=== PATIENT | male | born 1935 | race American Indian/Alaskan Native ===

== ENCOUNTER 2018-06-04 12:06 | Inpatient (IN) | payer MEDICARE ==
--- NOTE | 2018-06-04 12:25 | Emergency Department Report ---
Blank Doc - Documentation Documentation: Patient is here for lab Patient has been out of diaylsis for 2 weeks. Patient has history renal failure and is currently in a drug rehab. No pain no complaints bought here by a frient. Diaylsis will not accept patient until he has labs. This initial assessment diagnostic orders/clinical plan/treatment (s) is/Are subjectto change based on patient's health status, clinical progession and re- assessment by fellow clinical providers in the ED. Further treatment and work-up at subsequent clinical providers decretion. Patient/guardians urged not to elope from s their condition may be serious if not clinically assessed and managed. Inital order include:CBC, CMP,
[2018-06-04 13:07] LABS: Basophils % (Auto) 0.6 % (0.0-1.8); Eosinophils % (Auto) 0.9 % (0.0-4.3); Hematocrit 27.9 % (35.5-45.6); Hemoglobin 9.2 gm/dl (11.8-15.2); Lymphocytes # (Auto) 0.9 K/mm3 (1.2-5.4); Lymphocytes % (Auto) 19.5 % (13.4-35.0); Mean Corpuscular HGB Conc 33 % (32-34); Mean Corpuscular Volume 99 fl (84-94); Monocytes # (Auto) 0.4 K/mm3 (0.0-0.8); Platelet Count 241 K/mm3 (140-440); Red Blood Count 2.83 M/mm3 (3.65-5.03); Red Cell Distribution Width 16.6 % (13.2-15.2)
[2018-06-04 13:12] LABS: Albumin 3.7 g/dL (3.9-5); Calcium 7.7 mg/dL (8.4-10.2)
--- NOTE | 2018-06-04 14:39 | History and Physical Report ---
History of Present Illness Chief complaint: I need dialysis History of present illness: 82 YO Male with ESRD on HD, Dementia, Polysubstance Abuse, Noncompliance with Dialysis who currently resides at [facility] presents to ED for evaluation. Pt states that he has not had dialysis since moving to [place] over 2 weeks ago. PT reports dizziness, and feeling bloated. Pt transported to [facility] by his daughter for further care and evaluation. Pt seen and evaluated in ED and found to have ESRD. Pt admitted to [facility] unit. Nephrology consulted in ED for dialysis. Pt denies fever, chills, CP, Palpitations, NVD, Trauma, BRBPR, skin rash, or recent ill contacts. Past History Past Medical History: ESRD, other (Polysubstance Abuse, Dementia) Past Surgical History: Other (dialysis access. ) Social history: single, lives with family. denies: smoking, alcohol abuse, prescription drug abuse Family history: hypertension Medications and Allergies Allergies Allergy/AdvReac Type Severity Reaction Status Date / Time No Known Allergies Allergy Unverified 06/04/18 12:07 Review of Systems Constitutional: no weight loss, no weight gain, no fever, no chills Ears, nose, mouth and throat: no ear pain, no ear discharge, no tinnitis, no decreased hearing, no nose pain Cardiovascular: decreased exercise tolerance, no chest pain, no orthopnea, no palpitations, no rapid/irregular heart beat, no edema Respiratory: no cough, no cough with sputum, no excessive sputum, no hemoptysis Gastrointestinal: no nausea, no vomiting, no diarrhea Genitourinary Male: no hematuria, no discharge, no urinary frequency, no urinary hesitancy Rectal: no pain, no incontinence, no bleeding Musculoskeletal: no neck stiffness, no neck pain, no shooting arm pain, no arm numbness/tingling, no low back pain Integumentary: no rash, no pruritis, no redness, no sores, no wounds Neurological: no transient paralysis, no paralysis, no weakness, no parathesias, no numbness, no tingling Psychiatric: no anxiety, no memory loss, no change in sleep habits, no sleep disturbances, no insomnia Endocrine: no cold intolerance, no heat intolerance, no polyphagia, no excessive thirst, no polydipsia Hematologic/Lymphatic: no easy bruising, no easy bleeding, no lymphadenopathy, no lymphedema Allergic/Immunologic: no urticaria, no allergic rhinitis, no wheezing Exam - Constitutional Vitals: Temp Pulse Resp BP Pulse Ox 98.3 F 74 18 155/60 96 06/04/18 12:22 06/04/18 12:22 06/04/18 13:51 06/04/18 12:22 06/04/18 12:22 General appearance: Present: mild distress - EENT Eyes: Present: PERRL ENT: hearing intact, clear oral mucosa - Neck Neck: Present: supple, normal ROM - Respiratory Respiratory effort: normal Respiratory: bilateral: CTA - Cardiovascular Heart Sounds: Present: S1 & S2. Absent: rub, click - Extremities Extremities: pulses symmetrical, No edema Peripheral Pulses: within normal limits - Abdominal General gastrointestinal: Present: soft, non-tender, non-distended, normal bowel sounds Male genitourinary: Present: normal - Integumentary Integumentary: Present: clear, warm, dry - Musculoskeletal Musculoskeletal: gait normal, strength equal bilaterally - Psychiatric Psychiatric: appropriate mood/affect, intact judgment & insight - Neurologic Neurologic: CNII-XII intact, moves all extremities Results - Labs CBC & Chem 7: 06/04/18 12:28 06/04/18 12:28 Labs: Abnormal lab results 06/04/18 06/04/18 Range/Units 12:28 12:28 RBC 2.83 L (3.65-5.03) M/mm3 Hgb 9.2 L (11.8-15.2) gm/dl Hct 27.9 L (35.5-45.6) % MCV 99 H (84-94) fl MCH 33 H (28-32) pg RDW 16.6 H (13.2-15.2) % Howard % (Auto) 9.0 H (0.0-7.3) % Lymph # 0.9 L (1.2-5.4) K/mm3 Sodium 135 L (137-145) mmol/L Potassium 5.5 H (3.6-5.0) mmol/L Carbon Dioxide 10 L (22-30) mmol/L BUN 128 H (9-20) mg/dL Creatinine 10.4 H (0.8-1.5) mg/dL Glucose 104 H (75-100) mg/dL Calcium 7.7 L (8.4-10.2) mg/dL Albumin 3.7 L (3.9-5) g/dL Assessment and Plan - Patient Problems (1) ESRD (end stage renal disease) Current Visit: Yes Status: Acute Plan to address problem: Nephrology consulted in ED, urgent dialysis as per renal team, monitor uop q shift, avoid nephrotoxic agents (2) Dementia Current Visit: Yes Status: Acute Qualifiers: Dementia type: vascular dementia Dementia behavioral disturbance: without behavioral disturbance Qualified Code(s): F01.50 - Vascular dementia without behavioral disturbance Plan to address problem: supportive care, neuro checks, aspiration precautions. (3) Polysubstance abuse Current Visit: Yes Status: Acute Plan to address problem: D/C to [facility] when medically optimized. (4) DVT prophylaxis Current Visit: Yes Status: Acute Plan to address problem: SCD to BLE while in bed.
--- NOTE | 2018-06-04 14:41 | Emergency Department Report ---
ED General Adult HPI - General Chief complaint: Medical Clearance Stated complaint: MEDICAL CLEARANCE Time Seen by Provider: 06/04/18 12:18 Source: patient Mode of arrival: Ambulatory Limitations: No Limitations - History of Present Illness Initial comments: Patient is a thin 82-year-old F Vincent is a male who is presenting with need for dialysis. Patient has been bounced around from living with his daughter to now living here in [facility] is currently at the [facility]. The patient has not had dialysis in 16 days after moving here. Patient states that he does have some mild dizziness but otherwise no other complaints at this time. The patient denies any nausea vomiting headaches fevers chills or sob . Severity scale (0 -10): 0 - Related Data Allergies Allergy/AdvReac Type Severity Reaction Status Date / Time No Known Allergies Allergy Unverified 06/04/18 12:07 ED Review of Systems ROS: Stated complaint: MEDICAL CLEARANCE Other details as noted in HPI Comment: All other systems reviewed and negative ED Past Medical Hx - Past Medical History Hx Renal Disease: Yes (HD) Hx Psychiatric Treatment: Yes (drug abuse) - Social History Smoking Status: Unknown if ever smoked Substance Use Type: None ED Physical Exam - General Limitations: No Limitations General appearance: alert, in no apparent distress - Head Head exam: Present: atraumatic, normocephalic - Eye Eye exam: Present: normal appearance - ENT ENT exam: Present: mucous membranes moist - Neck Neck exam: Present: normal inspection - Respiratory Respiratory exam: Present: normal lung sounds bilaterally. Absent: respiratory distress, wheezes, rales, rhonchi - Cardiovascular Cardiovascular Exam: Present: regular rate, normal rhythm. Absent: systolic murmur, diastolic murmur, rubs, gallop - GI/Abdominal GI/Abdominal exam: Present: soft, normal bowel sounds. Absent: distended, tenderness, guarding, rebound - Rectal Rectal exam: Present: deferred - Extremities Exam Extremities exam: Present: normal inspection - Back Exam Back exam: Present: normal inspection - Neurological Exam Neurological exam: Present: alert, oriented X3 - Psychiatric Psychiatric exam: Present: normal affect, normal mood - Skin Skin exam: Present: warm, dry, intact, normal color. Absent: rash ED Course Vital Signs 06/04/18 06/04/18 12:22 13:51 Temperature 98.3 F Pulse Rate 74 Respiratory 18 18 Rate Blood Pressure 155/60 O2 Sat by Pulse 96 Oximetry ED Medical Decision Making - Lab Data Result diagrams: 06/04/18 12:28 06/04/18 12:28 Lab Results 06/04/18 06/04/18 Range/Units 12:28 12:28 WBC 4.5 (4.5-11.0) K/mm3 RBC 2.83 L (3.65-5.03) M/mm3 Hgb 9.2 L (11.8-15.2) gm/dl Hct 27.9 L (35.5-45.6) % MCV 99 H (84-94) fl MCH 33 H (28-32) pg MCHC 33 (32-34) % RDW 16.6 H (13.2-15.2) % Plt Count 241 (140-440) K/mm3 Lymph % (Auto) 19.5 (13.4-35.0) % Dewey % (Auto) 9.0 H (0.0-7.3) % Eos % (Auto) 0.9 (0.0-4.3) % Baso % (Auto) 0.6 (0.0-1.8) % Lymph # 0.9 L (1.2-5.4) K/mm3 Dewey # 0.4 (0.0-0.8) K/mm3 Eos # 0.0 (0.0-0.4) K/mm3 Baso # 0.0 (0.0-0.1) K/mm3 Seg Neutrophils % 70.0 (40.0-70.0) % Seg Neutrophils # 3.2 (1.8-7.7) K/mm3 Sodium 135 L (137-145) mmol/L Potassium 5.5 H (3.6-5.0) mmol/L Chloride 106.3 (98-107) mmol/L Carbon Dioxide 10 L (22-30) mmol/L Anion Gap 24 mmol/L BUN 128 H (9-20) mg/dL Creatinine 10.4 H (0.8-1.5) mg/dL Estimated GFR 5 ml/min BUN/Creatinine Ratio 12 % Glucose 104 H (75-100) mg/dL Calcium 7.7 L (8.4-10.2) mg/dL Total Bilirubin 0.90 (0.1-1.2) mg/dL AST 21 (5-40) units/L ALT 18 (7-56) units/L Alkaline Phosphatase 90 (35-129) units/L Total Protein 7.0 (6.3-8.2) g/dL Albumin 3.7 L (3.9-5) g/dL Albumin/Globulin Ratio 1.1 % - EKG Data -: EKG Interpreted by Me - EKG Data 06/04/18 14:39 EKG shows sinus rhythm of 68 with normal axis normal intervals no ST segment elevation or depressions. - Medical Decision Making Patient does have a slightly elevated potassium was given Kayexalate. Patient to be admitted to the hospitalist service for dialysis. Critical care attestation.: If time is entered above; I have spent that time in minutes in the direct care of this critically ill patient, excluding procedure time. ED Disposition Clinical Impression: Missed dialysis, Hyperkalemia Disposition: OP ADMIT IP TO THIS HOSP Is pt being admited?: Yes Does the pt Need Aspirin: No Condition: Stable Referrals: [facility] [Other] - 3-5 Days Time of Disposition: 14:41
[2018-06-04] MEDS ORDERED: ZOFRAN IV PRN (14:51)
[2018-06-04] MEDS ORDERED: TYLENOL PO PRN (14:51)
[2018-06-04] MEDS ORDERED: PROVENTIL IH PRN (14:51)
[2018-06-04] MEDS ORDERED: SODIUM CHLORIDE FLUSH SYRINGE 10 ML IV PRN (14:51)
[2018-06-04] MEDS ORDERED: NACL 0.9% 100 ML IV PRN (17:22)
[2018-06-04] MEDS ORDERED: KIONEX PO ONE ×2 (20:04→23:00)
--- NOTE | 2018-06-04 20:05 | Consultation ---
History of Present Illness - Reason for Consult Consult date: 06/04/18 end stage renal disease, hypernatremia - History of Present Illness The patient is a 82 YO male with history significant for HTN, Anemia, Dementia and ESRD on HD (MWF) who presented to the ED with c/o missed hemodialysis more than 2 weeks. Patient was a very poor historian and there was no family member at the bedside. He recently moved from [facility] and currently living here in [facility] at the [facility]. Pt reports dizziness at times. Pt denies fever, chills, CP, N, V, D, skin rash, abd pain, leg swelling or SMITH. Patient was transported to [facility] by his daughter. Pt seen and evaluated in ED a nd found to have hyperkalemia and metabolic acidosis. Pt admitted to [facility] unit. Nephrology consulted for ESRD care. Past History Past Medical History: anemia, ESRD, hypertension, other (Polysubstance Abuse, Dementia) Past Surgical History: Other (dialysis access. ) Social history: single, lives with family. denies: smoking, alcohol abuse, prescription drug abuse Family history: hypertension Medications and Allergies Allergies Allergy/AdvReac Type Severity Reaction Status Date / Time No Known Allergies Allergy Unverified 06/04/18 12:07 Active Meds: Active Medications Acetaminophen (Tylenol) 650 mg PO Q4H PRN PRN Reason: Pain MILD(1-3)/Fever >100.5/SMITH Albuterol (Proventil) 2.5 mg IH Q4HRT PRN PRN Reason: Shortness Of Breath Sodium Chloride (Nacl 0.9%) 100 mls @ 999 mls/hr IV LEEANN PRN PRN Reason: Hypotension Ondansetron HCl (Zofran) 4 mg IV Q8H PRN PRN Reason: Nausea And Vomiting Sodium Chloride (Sodium Chloride Flush Syringe 10 Ml) 10 ml IV BID HERMAN Sodium Chloride (Sodium Chloride Flush Syringe 10 Ml) 10 ml IV PRN PRN PRN Reason: LINE FLUSH Review of Systems ROS unobtainable: due to mental status Exam - Vital Signs Vital signs: Vital Signs Temp Pulse Resp BP Pulse Ox 98.3 F 74 18 155/60 96 06/04/18 12:22 06/04/18 12:22 06/04/18 12:22 06/04/18 12:22 06/04/18 12:22 - General Appearance General appearance: well-developed, appears stated age, other (not in distress) EENT: ATNC, mucous membranes moist, vision intact Neck: Present: neck supple, trachea midline Respiratory: Rales Heart: regular Gastrointestinal: Present: normoactive bowel sounds. Absent: tenderness, distended Integumentary: no rash, warm and dry Neurologic: no focal deficit, no asterixis, disoriented Musculoskeletal: Present: other (no edema, left arm AVF) Results - Lab Results 06/04/18 12:28 06/04/18 12:28 Most recent lab results Calcium 7.7 mg/dL (8.4-10.2) L 06/04/18 12:28 Assessment and Plan 1. ESRD: Patient was admitted with missed hemodialysis for more than 2 weeks. Plan to do hemodialysis today, orders placed. 2. Hyperkalemia and Metabolic acidosis: Hemodialysis today. Unfortunately the HD access got infiltrated and unable to do HD today. Kayexalate and IV Lasix ordered. 3. Anemia: Epogen as needed. 4. HTN: IV Lasix ordered. May need additional meds depending on the BP.
[2018-06-04] MEDS ORDERED: NACL 0.9 (PRIMING MACHINE ONLY DIALYSIS) MC ONE (20:29)
[2018-06-04] MEDS ORDERED: LASIX 80 MG in NACL 0.9% 50 ML IV ONE (20:51)
[2018-06-04] MEDS ORDERED: LASIX IV ONE (22:00)
[2018-06-04] MEDS: SODIUM CHLORIDE FLUSH SYRINGE 10 ML IV SCH (22:24)
[2018-06-04 22:25] LABS: Hepatitis B Surface Antigen Non-Reactive (Negative); Hepatitis C Virus Antibody Non-Reactive (NonReactive)
[2018-06-05 05:02] LABS: Calcium 7.5 mg/dL (8.4-10.2)
[2018-06-05] MEDS ORDERED: KIONEX PO NR (10:00)
[2018-06-05] MEDS: SODIUM CHLORIDE FLUSH SYRINGE 10 ML IV SCH ×2 (10:05→21:34)
[2018-06-05] MEDS ORDERED: D50W (25GM) Syringe IV ONE (10:30)
--- NOTE | 2018-06-05 11:29 | Progress Note ---
Assessment and Plan 1. ESRD: Patient was admitted with missed hemodialysis for more than 2 weeks. Unable to do hemodialysis as the access got infitrated. Vascular consulted. 2. Hyperkalemia and Metabolic acidosis: Unfortunately the HD access got infiltrated and unable to do HD. Kayexalate and IV Lasix ordered. 3. Malfunctioning AVF: Scheduled for Angioplasty tomorrow. 4. Anemia: Epogen as needed. 5. HTN: IV Lasix ordered. Monitor BP. Subjective Date of service: 06/05/18 Interval history: Patient was seen and examined at the bedside. Objective - Vital Signs Vital signs: Vital Signs - 12hr 06/05/18 06/05/18 06/05/18 02:57 04:41 07:55 Temperature 97.4 F L 97.9 F Pulse Rate 68 66 68 Respiratory 16 18 Rate Blood Pressure 151/60 158/70 O2 Sat by Pulse 99 98 Oximetry - General Appearance General appearance: well-developed, appears stated age, other (not in distress) EENT: ATNC, PERRL, vision intact Neck: supple Respiratory: Present: Clear to Ascultation Cardiology: regular, S1S2, no murmurs Integumentary: no rash, warm and dry Neurologic: no focal deficit, no asterixis, confused, disoriented Musculoskeletal: other (left arm AVF with swelling noted) - Lab 06/04/18 12:28 06/05/18 04:01 Most recent lab results Calcium 7.5 mg/dL (8.4-10.2) L 06/05/18 04:01 Phosphorus 6.10 mg/dL (2.5-4.5) H 06/05/18 04:01 Medications & Allergies - Medications Allergies/Adverse Reactions: Allergies No Known Allergies Allergy (Unverified 06/04/18 12:07) Active Medications: Generic Name Dose Route Start Last Admin Trade Name Freq PRN Reason Stop Dose Admin Acetaminophen 650 mg 06/04/18 14:51 Tylenol PO Q4H PRN Pain MILD(1-3)/Fever >100.5/SMITH Albuterol 2.5 mg 06/04/18 14:51 Proventil IH Q4HRT PRN Shortness Of Breath Sodium Chloride 100 mls @ 999 mls/hr 06/04/18 17:22 Nacl 0.9% IV LEEANN PRN Hypotension Ondansetron HCl 4 mg 06/04/18 14:51 Zofran IV Q8H PRN Nausea And Vomiting Sodium Chloride 10 ml 06/04/18 22:00 06/05/18 10:05 Sodium Chloride Flush Syringe 10 Ml IV 10 ml BID HERMAN Administration Sodium Chloride 10 ml 06/04/18 14:51 Sodium Chloride Flush Syringe 10 Ml IV PRN PRN LINE FLUSH Sodium Polystyrene Sulfonate 30 gm 06/05/18 10:00 06/05/18 10:21 Kionex PO 06/05/18 16:00 30 gm ONCE NR Administration
[2018-06-05] MEDS ORDERED: LASIX IV ONE ×2 (11:59→16:00)
--- NOTE | 2018-06-05 14:07 | Consultation ---
History of Present Illness - Reason for Consult Consult date: 06/05/18 malfunctioning left arm AV access - History of Present Illness He is 82 year Black male admitted through the Emergency Department with hyperkalemia and metabolic acidosis. He is poor historian and has history of dementia. Information obtained through records and from daughter indicates he has history of ESRD, HTN, Dementia and polysubstance abuse. He has become noncompliant with his healthcare regimen. Routinely misses dialysis sessions and has been moving around from different homes. He is currently residing in [facility]. His last hemodialysis session was 2 weeks ago. After admission, an attempt was made to complete hemodialysis through his left arm av access. Unable to finish full dialysis session because of malfunctioning access. Vascular surgery consult requested to evaluate. Past History Past Medical History: anemia, ESRD, hypertension, other (Polysubstance Abuse, Dementia) Past Surgical History: Other (dialysis access. ) Social history: single, other (Lives in senior care). denies: smoking, alcohol abuse, prescription drug abuse Family history: hypertension Medications and Allergies Allergies Allergy/AdvReac Type Severity Reaction Status Date / Time No Known Allergies Allergy Unverified 06/04/18 12:07 Active Meds: Active Medications Acetaminophen (Tylenol) 650 mg PO Q4H PRN PRN Reason: Pain MILD(1-3)/Fever >100.5/SMITH Albuterol (Proventil) 2.5 mg IH Q4HRT PRN PRN Reason: Shortness Of Breath Sodium Chloride (Nacl 0.9%) 100 mls @ 999 mls/hr IV LEEANN PRN PRN Reason: Hypotension Ondansetron HCl (Zofran) 4 mg IV Q8H PRN PRN Reason: Nausea And Vomiting Sodium Chloride (Sodium Chloride Flush Syringe 10 Ml) 10 ml IV BID HERMAN Last Admin: 06/05/18 10:05 Dose: 10 ml Documented by: Sodium Chloride (Sodium Chloride Flush Syringe 10 Ml) 10 ml IV PRN PRN PRN Reason: LINE FLUSH Sodium Polystyrene Sulfonate (Kionex) 30 gm PO ONCE NR Stop: 06/05/18 16:00 Last Admin: 06/05/18 10:21 Dose: 30 gm Documented by: Review of Systems ROS unobtainable: due to mental status (He denies any complaints but poor mental status) Exam - Constitutional Vitals: Temp Pulse Resp BP Pulse Ox 97.9 F 80 18 158/70 95 06/05/18 07:55 06/05/18 10:00 06/05/18 10:00 06/05/18 07:55 06/05/18 10:00 General appearance: Present: no acute distress, other (Thin) - EENT ENT: hearing intact - Neck Neck: Present: supple, normal ROM - Respiratory Respiratory effort: normal, other (nonlabored at rest) - Cardiovascular Rhythm: regular - Extremities Extremities: no ischemia, abnormal (Right DP/PT nonpalpable left DP palpable left PT nonpalpable. Extremities warm. Left arm AV access present good thrill but increased pulse) - Integumentary Integumentary: Present: warm, dry, normal turgor - Musculoskeletal Musculoskeletal: generalized weakness - Psychiatric Psychiatric: no intact judgment & insight, no memory intact, cooperative - Neurologic Neurologic: moves all extremities, other (Awake alert speech clear) Results - Labs CBC & Chem 7: 06/04/18 12:28 06/05/18 04:01 Labs: Abnormal lab results 06/05/18 Range/Units 04:01 Sodium 135 L (137-145) mmol/L Potassium 5.3 H (3.6-5.0) mmol/L Carbon Dioxide 13 L (22-30) mmol/L BUN 125 H (9-20) mg/dL Creatinine 10.2 H (0.8-1.5) mg/dL Calcium 7.5 L (8.4-10.2) mg/dL Phosphorus 6.10 H (2.5-4.5) mg/dL Assessment and Plan Mechanical complications AV Acess He has left upper arm AV access that was able to be used for hemodialysis for only partial session. The access has good thrill with increased pulse and will need fistuolgram and angioplasty to restore functionality to the access. If unable to complete procedure and restore full functionality to the access will need placement of hemodialysis catheter. Discussed all with patient and daughter(by phone), including risks benefits and alternatives. Consent obtained from daughter by phone.
--- NOTE | 2018-06-05 14:58 | Progress Note ---
Assessment and Plan Assessment and plan: ESRD (end stage renal disease) - Neurology consulted and give the patient Kayexalate and IV Lasix - Couldn't do dialysis because of AVF malfunction AVF malfunction - Vascular surgery consulted and will plan to do angioplasty and revascularization - If it doesn't work patient may need permcath Dementia - Supportive care Metabolic acidosis, hyperkalemia - Kayexalate and IV Lasix and nephrology - We'll monitor Polysubstance abuse - Per H/p DVT prophylaxis - Heparin History Interval history: Patient was seen and evaluated this morning, patient was alert but demented. Didn't give much history. Hospitalist Physical - Physical exam Narrative exam: Not in cardiopulmonary distress. The patient appeared well nourished and normally developed. Vital signs as documented. Head exam is unremarkable. No scleral icterus . Neck is without jugular venous distension. Lungs are clear to auscultation. Cardiac exam reveals regular rate and Rhythm. Abdominal exam reveals normal bowel sounds. Extremities are nonedematous and both femoral and pedal pulses are normal. [employer]: demented. He can say his name and he is in the hospital. - Constitutional Vitals: Temp Pulse Resp BP Pulse Ox 97.8 F 76 18 161/76 100 06/05/18 13:23 06/05/18 13:23 06/05/18 13:23 06/05/18 13:23 06/05/18 13:23 General appearance: Present: no acute distress, other (Thin) Results - Labs CBC & Chem 7: 06/04/18 12:28 06/05/18 04:01 Labs: Laboratory Last Values WBC 4.5 K/mm3 (4.5-11.0) 06/04/18 12: RBC 2.83 M/mm3 (3.65-5.03) L 06/04/18 12:28 Hgb 9.2 gm/dl (11.8-15.2) L 06/04/18 12: Hct 27.9 % (35.5-45.6) L 06/04/18 12:28 MCV 99 fl (84-94) H 06/04/18 12:28 MCH 33 pg (28-32) H 06/04/18 12: MCHC 33 % (32-34) 06/04/18 12: RDW 16.6 % (13.2-15.2) H 06/04/18 12:28 Plt Count 241 K/mm3 (140-440) 06/04/18 12:28 Lymph % (Auto) 19.5 % (13.4-35.0) 06/04/18 12:28 Traverse % (Auto) 9.0 % (0.0-7.3) H 06/04/18 12:28 Eos % (Auto) 0.9 % (0.0-4.3) 06/04/18 12:28 Baso % (Auto) 0.6 % (0.0-1.8) 06/04/18 12: Lymph # 0.9 K/mm3 (1.2-5.4) L 06/04/18 12:28 Traverse # 0.4 K/mm3 (0.0-0.8) 06/04/18 12: Eos # 0.0 K/mm3 (0.0-0.4) 06/04/18 12: Baso # 0.0 K/mm3 (0.0-0.1) 06/04/18 12:28 Seg Neutrophils % 70.0 % (40.0-70.0) 06/04/18 12: Seg Neutrophils # 3.2 K/mm3 (1.8-7.7) 06/04/18 12:28 Sodium 135 mmol/L (137-145) L 06/05/18 04:01 Potassium 5.3 mmol/L (3.6-5.0) H 06/05/18 04:01 Chloride 105.2 mmol/L (98-107) 06/05/18 04:01 Carbon Dioxide 13 mmol/L (22-30) L 06/05/18 04:01 Anion Gap 22 mmol/L 06/05/18 04:01 BUN 125 mg/dL (9-20) H 06/05/18 04:01 Creatinine 10.2 mg/dL (0.8-1.5) H 06/05/18 04:01 Estimated GFR 6 ml/min 06/05/18 04:01 BUN/Creatinine Ratio 12 % 06/05/18 04:01 Glucose 90 mg/dL (75-100) 06/05/18 04:01 Calcium 7.5 mg/dL (8.4-10.2) L 06/05/18 04:01 Phosphorus 6.10 mg/dL (2.5-4.5) H 06/05/18 04:01 Total Bilirubin 0.90 mg/dL (0.1-1.2) 06/04/18 12:28 AST 21 units/L (5-40) 06/04/18 12:28 ALT 18 units/L (7-56) 06/04/18 12:28 Alkaline Phosphatase 90 units/L (35-129) 06/04/18 12:28 Total Protein 7.0 g/dL (6.3-8.2) 06/04/18 12:28 Albumin 3.7 g/dL (3.9-5) L 06/04/18 12:28 Albumin/Globulin Ratio 1.1 % 06/04/18 12:28 Hepatitis A IgM Ab Non-reactive (NonReactive) 06/04/18 21:09 Hep Bs Antigen Non-reactive (Negative) 06/04/18 21:09 Hep B Core IgM Ab Non-reactive (NonReactive) 06/04/18 21:09 Hepatitis C Antibody Non-reactive (NonReactive) 06/04/18 21:09
[2018-06-05] MEDS: HEPARIN SUB-Q SCH (22:18)
--- NOTE | 2018-06-05 22:20 | XRay Report ---
PROCEDURE: XR CHEST 1V AP TECHNIQUE: Single frontal view of the chest HISTORY: TB (requirement for hemodialysis) COMPARISONS: No priors FINDINGS: Cardiomediastinal silhouette within normal limits. No evidence of airspace consolidation or pleural effusions Pulmonary vasculature are within normal limits. IMPRESSION: No radiographic evidence of acute disease.. This document is electronically signed by Sg Pearson MD., June 05 2018 10:18:14 PM ET
[2018-06-06] MEDS: HEPARIN SUB-Q SCH ×3 (05:07→21:54)
[2018-06-06 06:22] LABS: Calcium 7.2 mg/dL (8.4-10.2)
[2018-06-06] MEDS: PHOSLO PO SCH ×3 (08:10→16:01)
[2018-06-06] MEDS ORDERED: HEPARIN/NS 5000 UNIT/500ML(CATH LAB) 500 ML IR ONE ×2 (08:39→09:07)
[2018-06-06] MEDS ORDERED: NACL 0.9% 250ML 250 ML ONE (08:39)
[2018-06-06] MEDS ORDERED: HEPARIN 10,000 UNITS/10 ML ONE (08:39)
[2018-06-06] MEDS ORDERED: ANCEF/STERILE WATER 2 GM/20 ML 2 GM/20 ML SYRINGE IV ONE (08:39)
[2018-06-06] MEDS ORDERED: XYLOCAINE 2% INFILTRATI ONE (09:07)
[2018-06-06] MEDS: VERSED ONE ×2 (09:18→09:33)
[2018-06-06] MEDS: SUBLIMAZE ONE ×2 (09:18→09:33)
--- NOTE | 2018-06-06 09:46 | Progress Note ---
Assessment and Plan 1. ESRD: Patient was admitted with missed hemodialysis for more than 2 weeks. Continue HD as planned. Next HD tomorrow. 2. Hyperkalemia and Metabolic acidosis: POtassium level is better. Hemodialysis today. 3. Malfunctioning AVF: S/p Angioplasty today. 4. Anemia: Epogen as needed. 5. HTN: UF with HD today. Monitor BP. Subjective Date of service: 06/06/18 Interval history: Patient was seen and examined while on HD. Objective - Vital Signs Vital signs: Vital Signs - 12hr 06/05/18 06/06/18 22:00 02:52 Temperature 98.5 F Pulse Rate 66 Pulse Rate [ 78 From Monitor] Respiratory 18 Rate Blood Pressure 175/64 O2 Sat by Pulse 98 97 Oximetry - General Appearance General appearance: well-developed, appears stated age, other (not in distress) EENT: ATNC Neck: supple Respiratory: Present: Clear to Ascultation Cardiology: regular, S1S2, no murmurs Gastrointestinal: normoactive bowel sounds, no tenderness, no distended Integumentary: no rash Neurologic: no focal deficit, no asterixis, confused, disoriented Musculoskeletal: other (no edema, left arm AVF) - Lab 06/04/18 12:28 06/06/18 04:29 Most recent lab results Calcium 7.2 mg/dL (8.4-10.2) L 06/06/18 04:29 Phosphorus 6.10 mg/dL (2.5-4.5) H 06/05/18 04:01 Medications & Allergies - Medications Allergies/Adverse Reactions: Allergies No Known Allergies Allergy (Unverified 06/04/18 12:07) Active Medications: Generic Name Dose Route Start Last Admin Trade Name Freq PRN Reason Stop Dose Admin Acetaminophen 650 mg 06/04/18 14:51 Tylenol PO Q4H PRN Pain MILD(1-3)/Fever >100.5/SMITH Albuterol 2.5 mg 06/04/18 14:51 Proventil IH Q4HRT PRN Shortness Of Breath Calcium Acetate 667 mg 06/06/18 08:00 Phoslo PO TIDWM HERMAN Heparin Sodium (Porcine) 5,000 unit 06/05/18 22:00 06/06/18 05:07 Heparin SUB-Q Not Given Q8HR HERMAN Sodium Chloride 100 mls @ 999 mls/hr 06/04/18 17:22 Nacl 0.9% IV LEEANN PRN Hypotension Ondansetron HCl 4 mg 06/04/18 14:51 Zofran IV Q8H PRN Nausea And Vomiting Sodium Chloride 10 ml 06/04/18 22:00 06/05/18 21:34 Sodium Chloride Flush Syringe 10 Ml IV 10 ml BID HERMAN Administration Sodium Chloride 10 ml 06/04/18 14:51 Sodium Chloride Flush Syringe 10 Ml IV PRN PRN LINE FLUSH
--- NOTE | 2018-06-06 10:06 | Operative Report ---
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 DEVICES: 7 mm x 60 mm angioplasty balloon 6 mm x 40 mm angioplasty balloon PROCEDURE: The risks, benefits, and alternatives of the procedure were discussed and written informed consent was obtained. The patient was transported in stable condition to the angiography suite. The patient's left arm AV cephalic fistula was assessed by ultrasound and was patent. The patient was prepped and draped in a sterile fashion. The peripheral portion of the cephalic vein was small in comparison to the more central portion of the cephalic vein. Under ultrasound guidance, the left arm AV cephalic vein fistula was accessed with a 21-gauge micropuncture needle. The area was anesthetized prior to access. 0.018 inch wire was advanced through the micropuncture needle into the fistula and then the needle was exchanged for a 5 Hungarian transitional dilator. The inner dilator and wire were removed and a 0.035 inch wire was advanced through the anastomosis and into the brachial artery. The transitional dilator was exchanged for a 6 Hungarian short sheath. Fistulogram was performed of the venous outflow and central veins. Brachial artery was selected in a retrograde fashion. Digital subtraction angiography was performed. The anastomosis had a 50% narrowing, the peripheral cephalic vein had a multifocal 60% narrowing, the midportion of the cephalic vein was aneurysmal. The central portion of the cephalic vein was patent and had a stent near the cephalic arch. The central veins were patent. Angioplasty was performed at the peripheral cephalic vein with a 7 mm x 60 mm angioplasty 1. Angioplasty was performed of the anastomosis with a 6 mm x 40 mm angioplasty balloon. Digital subtraction angiography was performed from the brachial artery demon strate an patency of the brachial artery proximal and distal to the anastomosis with 10-20% residual narrowing of the peripheral dialysis access and the anastomosis. The thrill was much stronger. The wire was removed and the site was closed with a 3-0 Vicryl suture. The sheath was then removed. Hemostasis was achieved with slight manual compression. The patient was transported from the angiography suite to the floor in stable condition. IMPRESSION: Successful fistulogram and venoplasty as descibed above with a 6 mm and 7 mm angioplasty balloon.
[2018-06-06] MEDS ORDERED: NACL 0.9% 100 ML IV PRN (10:10)
[2018-06-06] MEDS: SODIUM CHLORIDE FLUSH SYRINGE 10 ML IV SCH ×2 (10:10→22:30)
[2018-06-06] MEDS ORDERED: PROCRIT IV PRN (10:12)
--- NOTE | 2018-06-06 13:37 | Progress Note ---
Assessment and Plan Assessment and plan: ESRD (end stage renal disease) - Neurology consulted and give the patient Kayexalate and IV Lasix - Couldn't do dialysis because of AVF malfunction AVF malfunction - Vascular surgery consulted and will plan to do angioplasty and revascularization was done today - Patient can be discharged tomorrow if she get dialysis Dementia - Supportive care Metabolic acidosis, hyperkalemia - Kayexalate and IV Lasix and nephrology - We'll monitor Polysubstance abuse - Per H/p DVT prophylaxis - Heparin Discharge; [facility] History Interval history: Patient was seen and evaluated this morning, patient was alert but demented. Didn't give much history. Hospitalist Physical - Physical exam Narrative exam: Not in cardiopulmonary distress. The patient appeared well nourished and normally developed. Vital signs as documented. Head exam is unremarkable. No scleral icterus . Neck is without jugular venous distension. Lungs are clear to auscultation. Cardiac exam reveals regular rate and Rhythm. Abdominal exam reveals normal bowel sounds. Extremities are nonedematous and both femoral and pedal pulses are normal. 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 He can say his name and he is in the hospital. - Constitutional Vitals: Temp Pulse Resp BP Pulse Ox 98.5 F 50 L 18 172/65 97 06/06/18 10:45 06/06/18 11:30 06/06/18 10:45 06/06/18 11:30 06/06/18 02:52 General appearance: Present: no acute distress, other (Thin) Results - Labs CBC & Chem 7: 06/04/18 12:28 06/06/18 04:29 Labs: Laboratory Last Values WBC 4.5 K/mm3 (4.5-11.0) 06/04/18 12:28 RBC 2.83 M/mm3 (3.65-5.03) L 06/04/18 12:28 Hgb 9.2 gm/dl (11.8-15.2) L 06/04/18 12:28 Hct 27.9 % (35.5-45.6) L 06/04/18 12:28 MCV 99 fl (84-94) H 06/04/18 12:28 MCH 33 pg (28-32) H 06/04/18 12:28 MCHC 33 % (32-34) 06/04/18 12:28 RDW 16.6 % (13.2-15.2) H 06/04/18 12:28 Plt Count 241 K/mm3 (140-440) 06/04/18 12:28 Lymph % (Auto) 19.5 % (13.4-35.0) 06/04/18 12:28 [place] % (Auto) 9.0 % (0.0-7.3) H 06/04/18 12:28 Eos % (Auto) 0.9 % (0.0-4.3) 06/04/18 12:28 Baso % (Auto) 0.6 % (0.0-1.8) 06/04/18 12:28 Lymph # 0.9 K/mm3 (1.2-5.4) L 06/04/18 12:28 [place] # 0.4 K/mm3 (0.0-0.8) 06/04/18 12:28 Eos # 0.0 K/mm3 (0.0-0.4) 06/04/18 12:28 Baso # 0.0 K/mm3 (0.0-0.1) 06/04/18 12:28 Seg Neutrophils % 70.0 % (40.0-70.0) 06/04/18 12:28 Seg Neutrophils # 3.2 K/mm3 (1.8-7.7) 06/04/18 12:28 Sodium 135 mmol/L (137-145) L 06/06/18 04:29 Potassium 4.8 mmol/L (3.6-5.0) 06/06/18 04:29 Chloride 102.0 mmol/L (98-107) 06/06/18 04:29 Carbon Dioxide 14 mmol/L (22-30) L 06/06/18 04:29 Anion Gap 24 mmol/L 06/06/18 04:29 BUN 121 mg/dL (9-20) H 06/06/18 04:29 Creatinine 9.7 mg/dL (0.8-1.5) H 06/06/18 04:29 Estimated GFR 6 ml/min 06/06/18 04:29 BUN/Creatinine Ratio 12 % 06/06/18 04:29 Glucose 87 mg/dL (75-100) 06/06/18 04:29 Calcium 7.2 mg/dL (8.4-10.2) L 06/06/18 04:29 Phosphorus 6.10 mg/dL (2.5-4.5) H 06/05/18 04:01 Total Bilirubin 0.90 mg/dL (0.1-1.2) 06/04/18 12:28 AST 21 units/L (5-40) 06/04/18 12:28 ALT 18 units/L (7-56) 06/04/18 12:28 Alkaline Phosphatase 90 units/L (35-129) 06/04/18 12:28 Total Protein 7.0 g/dL (6.3-8.2) 06/04/18 12:28 Albumin 3.7 g/dL (3.9-5) L 06/04/18 12:28 Albumin/Globulin Ratio 1.1 % 06/04/18 12:28 Hepatitis A IgM Ab Non-reactive (NonReactive) 06/04/18 21:09 Hep Bs Antigen Non-reactive (Negative) 06/04/18 21:09 Hep B Core IgM Ab Non-reactive (NonReactive) 06/04/18 21:09 Hepatitis C Antibody Non-reactive (NonReactive) 06/04/18 21:09
[2018-06-06] MEDS ORDERED: NACL 0.9 (PRIMING MACHINE ONLY DIALYSIS) MC ONE (14:09)
[2018-06-06] MEDS ORDERED: APRESOLINE IV PRN (15:18)
[2018-06-06] MEDS: NORVASC PO SCH (15:51)
[2018-06-06] MEDS: APRESOLINE PO SCH (21:00)
[2018-06-07 05:21] LABS: Basophils % (Auto) 0.6 % (0.0-1.8); Eosinophils # (Auto) 0.1 K/mm3 (0.0-0.4); Eosinophils % (Auto) 1.1 % (0.0-4.3); Hematocrit 24.2 % (35.5-45.6); Hemoglobin 8.3 gm/dl (11.8-15.2); Lymphocytes # (Auto) 1.1 K/mm3 (1.2-5.4); Lymphocytes % (Auto) 22.8 % (13.4-35.0); Mean Corpuscular HGB Conc 34 % (32-34); Mean Corpuscular Volume 93 fl (84-94); Monocytes # (Auto) 0.5 K/mm3 (0.0-0.8); Platelet Count 193 K/mm3 (140-440); Red Cell Distribution Width 16.1 % (13.2-15.2)
[2018-06-07] MEDS: HEPARIN SUB-Q SCH ×3 (05:39→22:16)
[2018-06-07 05:45] LABS: Calcium 7.5 mg/dL (8.4-10.2)
--- NOTE | 2018-06-07 06:04 | Progress Note ---
Assessment and Plan 1. ESRD: Patient was admitted with missed hemodialysis for more than 2 weeks. Last dialyzed yesterday. Next HD today. 2. Hyperkalemia and Metabolic acidosis: Potassium level is better. Hemodialysis today. 3. Malfunctioning AVF: S/p Angioplasty. 4. Anemia: Epogen as needed. 5. HTN: UF with HD today. Monitor BP. Subjective Date of service: 06/07/18 Interval history: Patient was seen and examined at the bedside. Objective - Vital Signs Vital signs: Vital Signs - 12hr 06/06/18 06/06/18 20:23 22:00 Respiratory 20 Rate O2 Sat by Pulse 98 96 Oximetry - General Appearance General appearance: well-developed, appears stated age, other (not in distress) EENT: ATNC Neck: supple Respiratory: Present: Clear to Ascultation Cardiology: regular, S1S2, no murmurs Gastrointestinal: normoactive bowel sounds, no tenderness, no distended Integumentary: no rash, warm and dry Neurologic: no focal deficit, no asterixis, confused, disoriented Musculoskeletal: other (no edema, left arm AVF) - Lab 06/07/18 04:21 06/07/18 04:21 Most recent lab results Calcium 7.5 mg/dL (8.4-10.2) L 06/07/18 04:21 Phosphorus 6.10 mg/dL (2.5-4.5) H 06/05/18 04:01 Medications & Allergies - Medications Allergies/Adverse Reactions: Allergies No Known Allergies Allergy (Unverified 06/04/18 12:07) Active Medications: Generic Name Dose Route Start Last Admin Trade Name Freq PRN Reason Stop Dose Admin Acetaminophen 650 mg 06/04/18 14:51 Tylenol PO Q4H PRN Pain MILD(1-3)/Fever >100.5/SMITH Albuterol 2.5 mg 06/04/18 14:51 Proventil IH Q4HRT PRN Shortness Of Breath Amlodipine Besylate 10 mg 06/06/18 16:00 06/06/18 15:51 Norvasc PO 10 mg QDAY HERMAN Administration Calcium Acetate 667 mg 06/06/18 08:00 06/06/18 16:01 Phoslo PO 667 mg TIDWM HERMAN Administration Epoetin [place] 10,000 unit 06/06/18 10:12 06/06/18 14:30 Procrit IV 10,000 unit LEEANN PRN Administration hemodialysis Heparin Sodium (Porcine) 5,000 unit 06/05/18 22:00 06/07/18 05:39 Heparin SUB-Q 5,000 unit Q8HR HERMAN Administration Hydralazine HCl 10 mg 06/06/18 15:18 Apresoline IV Q4HR PRN HTN SYS>160 Hydralazine HCl 100 mg 06/06/18 20:00 06/06/18 21:00 Apresoline PO 100 mg TID HERMAN Administration Sodium Chloride 100 mls @ 999 mls/hr 06/04/18 17:22 Nacl 0.9% IV LEEANN PRN Hypotension Ondansetron HCl 4 mg 06/04/18 14:51 Zofran IV Q8H PRN Nausea And Vomiting Sodium Chloride 10 ml 06/04/18 22:00 06/06/18 22:30 Sodium Chloride Flush Syringe 10 Ml IV 10 ml BID HERMAN Administration Sodium Chloride 10 ml 06/04/18 14:51 Sodium Chloride Flush Syringe 10 Ml IV PRN PRN LINE FLUSH
[2018-06-07] MEDS: APRESOLINE PO SCH ×3 (08:00→20:16)
[2018-06-07] MEDS ORDERED: ROCALTROL PO ONE (09:00)
[2018-06-07] MEDS: PHOSLO PO SCH ×3 (09:05→17:48)
[2018-06-07] MEDS: NORVASC PO SCH (09:24)
[2018-06-07] MEDS: SODIUM CHLORIDE FLUSH SYRINGE 10 ML IV SCH ×2 (10:00→22:17)
--- NOTE | 2018-06-07 16:58 | Discharge Summary ---
Providers - Providers Date of Admission: 06/04/18 15:55 Date of discharge: 06/14/18 Attending physician: JANNETTE ESQUIVEL 06/04/18 16:51 Consult to Physician [CONS] Routine Comment: Consulting Provider: EROS LERMA Physician Instructions: Reason For Exam: esrd 06/05/18 09:58 Consult to Interventional Radiology [CONS] Routine Consulting Provider: WILLAM RAUSCH Reason For Exam: Malfunctioning AVF Place consult to:: Notified:: ANN Hospitalization Condition: Stable Hospital course: 82-year-old presents with hyperkalemia secondary to end-stage renal disease. Patient had a malfunction of AV graft and required vascular surgery prior to restarting hemodialysis. Patient was dialyzed yesterday and is scheduled be dialyzed today and may go back to assisted living facility after hemodialysis today. Patient is excited ready to get back home. All questions and concerns answered to patient's satisfaction. Disposition: - TO HOME OR SELFCARE - Discharge Diagnoses (1) Dementia Status: Acute Qualifiers: Dementia type: vascular dementia Dementia behavioral disturbance: without behavioral disturbance Qualified Code(s): F01.50 - Vascular dementia without behavioral disturbance Comment: Patient minimal cognitive impairment. Able to make needs known. (2) ESRD (end stage renal disease) Status: Acute Comment: Patient missed 2 weeks of hemodialysis. We'll dialyze both Saturday and Saturday. Patient back at baseline. No shortness of breath electrolytes stable hyperkalemia stable. Patient to be discharged back to assisted living today. (3) Hyperkalemia Status: Resolved Core Measure Documentation - Palliative Care Palliative Care/ Comfort Measures: Not Applicable - Core Measures Any of the following diagnoses?: none Exam - Constitutional Vitals: Temp Pulse Resp BP Pulse Ox 97.8 F 71 20 181/67 99 06/07/18 14:14 06/07/18 14:14 06/07/18 14:14 06/07/18 14:14 06/07/18 14:14 General appearance: Present: no acute distress, well-nourished - EENT Eyes: Present: PERRL ENT: hearing intact, clear oral mucosa - Neck Neck: Present: supple, normal ROM - Respiratory Respiratory effort: normal Respiratory: bilateral: CTA - Cardiovascular Heart Sounds: Present: S1 & S2. Absent: rub, click - Extremities Extremities: pulses symmetrical, No edema Peripheral Pulses: within normal limits - Abdominal General gastrointestinal: Present: soft, non-tender, non-distended, normal bowel sounds Male genitourinary: Present: normal - Integumentary Integumentary: Present: clear, warm, dry - Musculoskeletal Musculoskeletal: gait normal, strength equal bilaterally - Psychiatric Psychiatric: appropriate mood/affect, intact judgment & insight - Neurologic Neurologic: CNII-XII intact, moves all extremities Plan Activity: fall precautions Weight Bearing Status: Weight Bear as Tolerated Diet: renal Follow up with: [facility] [Other] - 3-5 Days Prescriptions: amLODIPine [Norvasc] 10 mg PO QDAY #30 tablet Calcium Acetate [Phoslo] 667 mg PO TIDWM #20 capsule hydrALAZINE [Apresoline TAB] 100 mg PO TID #90 tab
[2018-06-08] MEDS: HEPARIN SUB-Q SCH ×3 (05:57→21:38)
[2018-06-08] MEDS: PHOSLO PO SCH ×3 (08:34→17:54)
[2018-06-08] MEDS: APRESOLINE PO SCH ×3 (08:35→20:58)
[2018-06-08] MEDS: NORVASC PO SCH (09:20)
[2018-06-08] MEDS: SODIUM CHLORIDE FLUSH SYRINGE 10 ML IV SCH ×2 (10:00→21:08)
--- NOTE | 2018-06-08 10:44 | Progress Note ---
Assessment and Plan - Patient Problems (1) Dementia Current Visit: Yes Status: Acute Qualifiers: Dementia type: vascular dementia Dementia behavioral disturbance: without behavioral disturbance Qualified Code(s): F01.50 - Vascular dementia without behavioral disturbance Plan to address problem: Patient continues with cognitive impairment. Continues to have some ability to make needs known. Continue present management and supportive care. (2) ESRD (end stage renal disease) Current Visit: Yes Status: Acute Plan to address problem: Patient with end-stage renal disease unable to access AV graft. Malfunctioning of AV grep. Vascular displaces patients graft two days ago. Will require follow- up evaluation. Patient will be unable to be dialyzed without any excess. The refore may go was discontinued. (3) Hyperkalemia Current Visit: Yes Status: Resolved Plan to address problem: Patients hyperkalemia have been treated with hemodialysis. Now the patient unable to received Hemodialysis will need to obtain follow-up potassium. History Interval history: Patient hospital course complicated yesterday by malfunction of AV graft. Di alysis nurse reports that every time graft was to be accessed it started to increase in size 3 to 4 fold and become uncomfortable. Patient also relates similar history despite dementia. Hospitalist Physical - Constitutional Vitals: Temp Pulse Resp BP Pulse Ox 98.1 F 71 16 181/67 99 06/08/18 07:33 06/08/18 09:20 06/08/18 08:05 06/08/18 09:20 06/08/18 08:05 General appearance: Present: no acute distress, well-nourished - EENT Eyes: Present: PERRL, EOM intact ENT: hearing intact, clear oral mucosa, dentition normal, poor dentition, no oropharyngeal erythema, no thrush, no ulcerations - Neck Neck: Present: supple, normal ROM - Respiratory Respiratory effort: normal Respiratory: bilateral: CTA - Cardiovascular Rhythm: regular - Extremities Extremities: no ischemia, pulses intact, No edema, normal temperature, normal color Peripheral Pulses: within normal limits - Abdominal General gastrointestinal: soft, non-tender, non-distended, normal bowel sounds - Integumentary Integumentary: Present: clear, warm, dry - Psychiatric Psychiatric: other (Cognitive impairment) Results - Labs CBC & Chem 7: 06/07/18 04:21 06/07/18 04:21 Labs: Laboratory Last Values WBC 4.8 K/mm3 (4.5-11.0) 06/07/18 04:21 RBC 2.60 M/mm3 (3.65-5.03) L 06/07/18 04:21 Hgb 8.3 gm/dl (11.8-15.2) L 06/07/18 04:21 Hct 24.2 % (35.5-45.6) L 06/07/18 04:21 MCV 93 fl (84-94) 06/07/18 04:21 MCH 32 pg (28-32) 06/07/18 04:21 MCHC 34 % (32-34) 06/07/18 04:21 RDW 16.1 % (13.2-15.2) H 06/07/18 04:21 Plt Count 193 K/mm3 (140-440) 06/07/18 04:21 Lymph % (Auto) 22.8 % (13.4-35.0) 06/07/18 04:21 [place] % (Auto) 11.0 % (0.0-7.3) H 06/07/18 04:21 Eos % (Auto) 1.1 % (0.0-4.3) 06/07/18 04:21 Baso % (Auto) 0.6 % (0.0-1.8) 06/07/18 04:21 Lymph # 1.1 K/mm3 (1.2-5.4) L 06/07/18 04:21 [place] # 0.5 K/mm3 (0.0-0.8) 06/07/18 04:21 Eos # 0.1 K/mm3 (0.0-0.4) 06/07/18 04:21 Baso # 0.0 K/mm3 (0.0-0.1) 06/07/18 04:21 Seg Neutrophils % 64.5 % (40.0-70.0) 06/07/18 04:21 Seg Neutrophils # 3.1 K/mm3 (1.8-7.7) 06/07/18 04:21 Sodium 144 mmol/L (137-145) D 06/07/18 04:21 Potassium 3.9 mmol/L (3.6-5.0) 06/07/18 04:21 Chloride 104.6 mmol/L (98-107) 06/07/18 04:21 Carbon Dioxide 24 mmol/L (22-30) D 06/07/18 04:21 Anion Gap 19 mmol/L 06/07/18 04:21 BUN 53 mg/dL (9-20) H 06/07/18 04:21 Creatinine 5.9 mg/dL (0.8-1.5) H 06/07/18 04:21 Estimated GFR 11 ml/min 06/07/18 04:21 BUN/Creatinine Ratio 9 % 06/07/18 04:21 Glucose 100 mg/dL (75-100) 06/07/18 04:21 Calcium 7.5 mg/dL (8.4-10.2) L 06/07/18 04:21 Phosphorus 6.10 mg/dL (2.5-4.5) H 06/05/18 04:01 Total Bilirubin 0.90 mg/dL (0.1-1.2) 06/04/18 12:28 AST 21 units/L (5-40) 06/04/18 12:28 ALT 18 units/L (7-56) 06/04/18 12:28 Alkaline Phosphatase 90 units/L (35-129) 06/04/18 12:28 Total Protein 7.0 g/dL (6.3-8.2) 06/04/18 12:28 Albumin 3.7 g/dL (3.9-5) L 06/04/18 12:28 Albumin/Globulin Ratio 1.1 % 06/04/18 12:28 Hepatitis A IgM Ab Non-reactive (NonReactive) 06/04/18 21:09 Hep Bs Antigen Non-reactive (Negative) 06/04/18 21:09 Hep B Core IgM Ab Non-reactive (NonReactive) 06/04/18 21:09 Hepatitis C Antibody Non-reactive (NonReactive) 06/04/18 21:09
--- NOTE | 2018-06-08 14:35 | Progress Note ---
Assessment and Plan 1. ESRD: Patient was admitted with missed hemodialysis for more than 2 weeks. Last dialyzed 2 days ago. 2. Hyperkalemia and Metabolic acidosis: Potassium level is better. 3. Malfunctioning AVF: S/p Angioplasty. Unable to use the AVF yesterday. Followed by Vascular. 4. Anemia: Epogen as needed. 5. HTN: Monitor BP. Subjective Date of service: 06/08/18 Interval history: Patient was seen and examined at the bedside. Objective - Vital Signs Vital signs: Vital Signs - 12hr 06/08/18 06/08/18 06/08/18 07:33 07:34 08:05 Temperature 98.1 F Pulse Rate 62 65 Pulse Rate [ 62 From Monitor] Respiratory 16 16 Rate Blood Pressure 147/59 O2 Sat by Pulse 99 96 99 Oximetry 06/08/18 06/08/18 09:20 13:45 Temperature 97.9 F Pulse Rate 71 66 Pulse Rate [ From Monitor] Respiratory 18 Rate Blood Pressure 181/67 148/56 O2 Sat by Pulse 97 Oximetry - General Appearance General appearance: well-developed, appears stated age, other (not in distress) EENT: ATNC Neck: supple Respiratory: Present: Clear to Ascultation Cardiology: regular, S1S2, no murmurs Gastrointestinal: normoactive bowel sounds, no tenderness, no distended Integumentary: no rash, warm and dry Neurologic: no focal deficit, no asterixis, confused, disoriented Musculoskeletal: other (no edema, left arm AVF) - Lab 06/07/18 04:21 06/07/18 04:21 Most recent lab results Calcium 7.5 mg/dL (8.4-10.2) L 06/07/18 04:21 Phosphorus 6.10 mg/dL (2.5-4.5) H 06/05/18 04:01 Medications & Allergies - Medications Allergies/Adverse Reactions: Allergies No Known Allergies Allergy (Unverified 06/04/18 12:07) Home Medications: Home Medications Medication Instructions Recorded Confirmed Last Taken Type Calcium Acetate [Phoslo] 667 mg PO TIDWM #20 capsule 06/07/18 Unknown Rx amLODIPine [Norvasc] 10 mg PO QDAY #30 tablet 06/07/18 Unknown Rx hydrALAZINE [Apresoline TAB] 100 mg PO TID #90 tab 06/07/18 Unknown Rx Active Medications: Generic Name Dose Route Start Last Admin Trade Name Freq PRN Reason Stop Dose Admin Acetaminophen 650 mg 06/04/18 14:51 Tylenol PO Q4H PRN Pain MILD(1-3)/Fever >100.5/SMITH Albuterol 2.5 mg 06/04/18 14:51 Proventil IH Q4HRT PRN Shortness Of Breath Amlodipine Besylate 10 mg 06/06/18 16:00 06/08/18 09:20 Norvasc PO 10 mg QDAY HERMAN Administration Calcium Acetate 667 mg 06/06/18 08:00 06/08/18 12:42 Phoslo PO 667 mg TIDWM HERMAN Administration Epoetin Fahad 10,000 unit 06/06/18 10:12 06/06/18 14:30 Procrit IV 10,000 unit LEEANN PRN Administration hemodialysis Heparin Sodium (Porcine) 5,000 unit 06/05/18 22:00 06/08/18 05:57 Heparin SUB-Q 5,000 unit Q8HR HERMAN Administration Hydralazine HCl 10 mg 06/06/18 15:18 Apresoline IV Q4HR PRN HTN SYS>160 Hydralazine HCl 100 mg 06/06/18 20:00 06/08/18 08:35 Apresoline PO 100 mg TID HERMAN Administration Sodium Chloride 100 mls @ 999 mls/hr 06/04/18 17:22 Nacl 0.9% IV LEEANN PRN Hypotension Ondansetron HCl 4 mg 06/04/18 14:51 Zofran IV Q8H PRN Nausea And Vomiting Sodium Chloride 10 ml 06/04/18 22:00 06/07/18 22:17 Sodium Chloride Flush Syringe 10 Ml IV 10 ml BID HERMAN Administration Sodium Chloride 10 ml 06/04/18 14:51 Sodium Chloride Flush Syringe 10 Ml IV PRN PRN LINE FLUSH
[2018-06-09 05:33] LABS: Hematocrit 21.7 % (35.5-45.6); Hemoglobin 7.3 gm/dl (11.8-15.2); Mean Corpuscular HGB Conc 34 % (32-34); Mean Corpuscular Volume 94 fl (84-94); Platelet Count 185 K/mm3 (140-440); Red Cell Distribution Width 15.6 % (13.2-15.2)
[2018-06-09] MEDS: HEPARIN SUB-Q SCH ×3 (05:35→22:20)
[2018-06-09 05:55] LABS: Calcium 7.4 mg/dL (8.4-10.2)
[2018-06-09] MEDS: PHOSLO PO SCH ×3 (08:50→18:00)
[2018-06-09] MEDS: APRESOLINE PO SCH ×3 (08:55→21:30)
--- NOTE | 2018-06-09 09:26 | Progress Note ---
Assessment and Plan 1. ESRD: Patient was admitted with missed hemodialysis for more than 2 weeks. Last dialyzed 3 days ago. Plan to do HD today after angioplasty. 2. Hyperkalemia and Metabolic acidosis: Potassium level is better. 3. Malfunctioning AVF: S/p Angioplasty. Unable to use the AVF yesterday. D/w Vascular. 4. Anemia: Epogen with HD. 5. HTN: Monitor BP. Subjective Date of service: 06/09/18 Interval history: Patient was seen and examined at the bedside. Objective - Vital Signs Vital signs: Vital Signs - 12hr 06/08/18 06/09/18 22:00 08:01 Temperature 99.1 F Pulse Rate 75 69 Respiratory 18 Rate Blood Pressure 128/56 O2 Sat by Pulse 96 Oximetry - General Appearance General appearance: well-developed, appears stated age, other (not in distress) EENT: ATNC, hearing intact Neck: supple Respiratory: Present: Clear to Ascultation Cardiology: regular, S1S2, no murmurs Gastrointestinal: normoactive bowel sounds, no tenderness, no distended Integumentary: no rash Neurologic: no focal deficit, no asterixis, disoriented Musculoskeletal: other (no edema, left arm AVF) Psychiatric: cooperative - Lab 06/09/18 04:27 06/09/18 04:27 Most recent lab results Calcium 7.4 mg/dL (8.4-10.2) L 06/09/18 04:27 Phosphorus 6.10 mg/dL (2.5-4.5) H 06/05/18 04:01 Medications & Allergies - Medications Allergies/Adverse Reactions: Allergies No Known Allergies Allergy (Unverified 06/04/18 12:07) Home Medications: Home Medications Medication Instructions Recorded Confirmed Last Taken Type Calcium Acetate [Phoslo] 667 mg PO TIDWM #20 capsule 06/07/18 Unknown Rx amLODIPine [Norvasc] 10 mg PO QDAY #30 tablet 06/07/18 Unknown Rx hydrALAZINE [Apresoline TAB] 100 mg PO TID #90 tab 06/07/18 Unknown Rx Active Medications: Generic Name Dose Route Start Last Admin Trade Name Freq PRN Reason Stop Dose Admin Acetaminophen 650 mg 06/04/18 14:51 Tylenol PO Q4H PRN Pain MILD(1-3)/Fever >100.5/SMITH Albuterol 2.5 mg 06/04/18 14:51 Proventil IH Q4HRT PRN Shortness Of Breath Amlodipine Besylate 10 mg 06/06/18 16:00 06/08/18 09:20 Norvasc PO 10 mg QDAY HERMAN Administration Calcium Acetate 667 mg 06/06/18 08:00 06/08/18 17:54 Phoslo PO 667 mg TIDWM HERMAN Administration Epoetin Fahad 10,000 unit 06/06/18 10:12 06/06/18 14:30 Procrit IV 10,000 unit LEEANN PRN Administration hemodialysis Heparin Sodium (Porcine) 5,000 unit 06/05/18 22:00 06/09/18 05:35 Heparin SUB-Q 5,000 unit Q8HR HERMAN Administration Hydralazine HCl 10 mg 06/06/18 15:18 Apresoline IV Q4HR PRN HTN SYS>160 Hydralazine HCl 100 mg 06/06/18 20:00 06/08/18 20:58 Apresoline PO 100 mg TID HERMAN Administration Sodium Chloride 100 mls @ 999 mls/hr 06/04/18 17:22 Nacl 0.9% IV LEEANN PRN Hypotension Ondansetron HCl 4 mg 06/04/18 14:51 Zofran IV Q8H PRN Nausea And Vomiting Sodium Chloride 10 ml 06/04/18 22:00 06/08/18 21:08 Sodium Chloride Flush Syringe 10 Ml IV 10 ml BID HERMAN Administration Sodium Chloride 10 ml 06/04/18 14:51 Sodium Chloride Flush Syringe 10 Ml IV PRN PRN LINE FLUSH
[2018-06-09] MEDS ORDERED: PROCRIT IV PRN (10:00)
--- NOTE | 2018-06-09 10:31 | Event Note ---
Date: 06/09/18 difficulty maiantaining flow during HD. Will repeat fistulogram, possible permcath insertion.
[2018-06-09] MEDS: SODIUM CHLORIDE FLUSH SYRINGE 10 ML IV SCH ×2 (11:00→22:20)
--- NOTE | 2018-06-09 13:50 | Progress Note ---
Assessment and Plan Assessment and plan: ESRD (end stage renal disease) - Nephrology consulted - Couldn't do dialysis because of AVF malfunction - Potassium is normal AVF malfunction - Vascular surgery consulted and tried revascularization on Saturday unsuccessfully on Saturday, will try today, if unsuccessful will need a permcath Dementia - Supportive care Metabolic acidosis, hyperkalemia - Potassium is normal Severe anemia - Will have porcrit with dialysis - close monitoring, transfuse if hemoglobin presence of Polysubstance abuse - Per H/p DVT prophylaxis - Heparin Discharge; pending revascularization of AV graft, ? PermCath History Interval history: Patient was seen and evaluated this morning, patient was alert and oriented x2. Hospitalist Physical - Physical exam Narrative exam: Not in cardiopulmonary distress. The patient appeared well nourished and normally developed. Vital signs as documented. Head exam is unremarkable. No scleral icterus . Neck is without jugular venous distension. Lungs are clear to auscultation. Cardiac exam reveals regular rate and Rhythm. Abdominal exam reveals normal bowel sounds. Extremities are nonedematous and both femoral and pedal pulses are normal. 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 - Constitutional Vitals: Temp Pulse Resp BP Pulse Ox 99.1 F 69 18 128/56 96 06/09/18 08:01 06/09/18 08:01 06/09/18 08:01 06/09/18 08:01 06/09/18 08:01 General appearance: Present: no acute distress, well-nourished Results - Labs CBC & Chem 7: 06/09/18 04:27 06/09/18 04:27 Labs: Laboratory Last Values WBC 5.8 K/mm3 (4.5-11.0) 06/09/18 04:27 RBC 2.30 M/mm3 (3.65-5.03) L 06/09/18 04:27 Hgb 7.3 gm/dl (11.8-15.2) L 06/09/18 04:27 Hct 21.7 % (35.5-45.6) L 06/09/18 04:27 MCV 94 fl (84-94) 06/09/18 04:27 MCH 32 pg (28-32) 06/09/18 04:27 MCHC 34 % (32-34) 06/09/18 04:27 RDW 15.6 % (13.2-15.2) H 06/09/18 04:27 Plt Count 185 K/mm3 (140-440) 06/09/18 04:27 Lymph % (Auto) 22.8 % (13.4-35.0) 06/07/18 04:21 [place] % (Auto) 11.0 % (0.0-7.3) H 06/07/18 04:21 Eos % (Auto) 1.1 % (0.0-4.3) 06/07/18 04:21 Baso % (Auto) 0.6 % (0.0-1.8) 06/07/18 04:21 Lymph # 1.1 K/mm3 (1.2-5.4) L 06/07/18 04:21 [place] # 0.5 K/mm3 (0.0-0.8) 06/07/18 04:21 Eos # 0.1 K/mm3 (0.0-0.4) 06/07/18 04:21 Baso # 0.0 K/mm3 (0.0-0.1) 06/07/18 04:21 Seg Neutrophils % 64.5 % (40.0-70.0) 06/07/18 04:21 Seg Neutrophils # 3.1 K/mm3 (1.8-7.7) 06/07/18 04:21 Sodium 133 mmol/L (137-145) L D 06/09/18 04:27 Potassium 4.7 mmol/L (3.6-5.0) D 06/09/18 04:27 Chloride 96.5 mmol/L (98-107) L 06/09/18 04:27 Carbon Dioxide 21 mmol/L (22-30) L 06/09/18 04:27 Anion Gap 20 mmol/L 06/09/18 04:27 BUN 70 mg/dL (9-20) H 06/09/18 04:27 Creatinine 8.5 mg/dL (0.8-1.5) H 06/09/18 04:27 Estimated GFR 7 ml/min 06/09/18 04:27 BUN/Creatinine Ratio 8 % 06/09/18 04:27 Glucose 87 mg/dL (75-100) 06/09/18 04:27 Calcium 7.4 mg/dL (8.4-10.2) L 06/09/18 04:27 Phosphorus 6.10 mg/dL (2.5-4.5) H 06/05/18 04:01 Total Bilirubin 0.90 mg/dL (0.1-1.2) 06/04/18 12:28 AST 21 units/L (5-40) 06/04/18 12:28 ALT 18 units/L (7-56) 06/04/18 12:28 Alkaline Phosphatase 90 units/L (35-129) 06/04/18 12:28 Total Protein 7.0 g/dL (6.3-8.2) 06/04/18 12:28 Albumin 3.7 g/dL (3.9-5) L 06/04/18 12:28 Albumin/Globulin Ratio 1.1 % 06/04/18 12:28 Hepatitis A IgM Ab Non-reactive (NonReactive) 06/04/18 21:09 Hep Bs Antigen Non-reactive (Negative) 06/04/18 21:09 Hep B Core IgM Ab Non-reactive (NonReactive) 06/04/18 21:09 Hepatitis C Antibody Non-reactive (NonReactive) 06/04/18 21:09
[2018-06-09] MEDS ORDERED: HEPARIN/NS 5000 UNIT/500ML(CATH LAB) 0 ML IR ONE (14:32)
[2018-06-09] MEDS ORDERED: HEPARIN 10,000 UNITS/10 ML ONE (14:32)
[2018-06-09] MEDS ORDERED: XYLOCAINE 2% INFILTRATI ONE (14:32)
[2018-06-09] MEDS ORDERED: NACL 0.9% 500 ML 0 ML ONE (14:32)
[2018-06-09] MEDS ORDERED: SUBLIMAZE ONE (14:33)
[2018-06-09] MEDS ORDERED: VERSED ONE (14:33)
[2018-06-09] MEDS ORDERED: NACL 0.9% 100 ML IV PRN (15:00)
--- NOTE | 2018-06-09 16:21 | Event Note ---
Date: 06/09/18 Due to emergency cardiac cath procedure is on hold. We will reschedule fistulogram for tomorrow am.
[2018-06-10] MEDS: HEPARIN SUB-Q SCH ×3 (05:17→21:48)
[2018-06-10 06:52] LABS: Basophils % (Auto) 0.4 % (0.0-1.8); Eosinophils # (Auto) 0.1 K/mm3 (0.0-0.4); Eosinophils % (Auto) 1.4 % (0.0-4.3); Hematocrit 21.7 % (35.5-45.6); Hemoglobin 7.4 gm/dl (11.8-15.2); Lymphocytes # (Auto) 0.9 K/mm3 (1.2-5.4); Lymphocytes % (Auto) 13.8 % (13.4-35.0); Mean Corpuscular HGB Conc 34 % (32-34); Mean Corpuscular Volume 94 fl (84-94); Monocytes # (Auto) 0.5 K/mm3 (0.0-0.8); Monocytes % (Auto) 7.4 % (0.0-7.3); Platelet Count 204 K/mm3 (140-440); Red Cell Distribution Width 15.3 % (13.2-15.2)
[2018-06-10 06:54] LABS: Calcium 7.8 mg/dL (8.4-10.2)
[2018-06-10] MEDS: APRESOLINE PO SCH ×3 (08:45→21:48)
[2018-06-10] MEDS: PHOSLO PO SCH ×3 (08:45→18:00)
[2018-06-10] MEDS: SODIUM CHLORIDE FLUSH SYRINGE 10 ML IV SCH ×2 (09:39→21:48)
[2018-06-10] MEDS: NORVASC PO SCH (09:40)
[2018-06-10] MEDS ORDERED: HEPARIN/NS 5000 UNIT/500ML(CATH LAB) 1,000 ML IR ONE (11:12)
[2018-06-10] MEDS ORDERED: XYLOCAINE 2% INFILTRATI ONE (11:13)
[2018-06-10] MEDS ORDERED: VERSED ONE (11:13)
[2018-06-10] MEDS ORDERED: ANCEF/STERILE WATER 2 GM/20 ML 2 GM/20 ML SYRINGE IV ONE (11:13)
[2018-06-10] MEDS ORDERED: NACL 0.9% 500 ML 500 ML ONE (11:14)
[2018-06-10] MEDS: SUBLIMAZE ONE ×3 (11:40→11:52)
[2018-06-10] MEDS: HEPARIN 10,000 UNITS/10 ML ONE ×2 (11:51→11:52)
--- NOTE | 2018-06-10 12:05 | Post Operative Note ---
Date of procedure: 06/10/18 Pre-op diagnosis: AV fistula malfunction Post-op diagnosis: same Findings: patent AVF minimal residual stenosis at cephalic arch Procedure: fistulogram and angioplasty of cephalic arch Anesthesia: MAC Surgeon: ANTONIA HOLDEN Estimated blood loss: minimal Condition: stable Disposition: PACU
--- NOTE | 2018-06-10 13:36 | Progress Note ---
Assessment and Plan Assessment and plan: ESRD (end stage renal disease) - Nephrology following AVF malfunction - Vascular surgery with fistulogram and angioplasty of cephalic arch. Patient now with patent AVF minimal residual stenosis at cephalic arch Dementia - Supportive care Metabolic acidosis, hyperkalemia - Potassium is normal Severe anemia - Will have porcrit with dialysis - close monitoring, Polysubstance abuse DVT prophylaxis - Heparin History Interval history: No new issues overnight. Hospitalist Physical - Constitutional Vitals: Temp Pulse Resp BP Pulse Ox 98.2 F 66 20 141/55 98 06/10/18 07:50 06/10/18 10:00 06/10/18 08:59 06/10/18 09:40 06/10/18 08:59 General appearance: Present: no acute distress, well-nourished - EENT Eyes: Present: PERRL, EOM intact ENT: hearing intact, clear oral mucosa, dentition normal - Neck Neck: Present: supple, normal ROM - Respiratory Respiratory effort: normal Respiratory: bilateral: CTA - Cardiovascular Rhythm: regular Heart Sounds: Present: S1 & S2. Absent: gallop, rub - Extremities Extremities: no ischemia, No edema, Full ROM - Abdominal General gastrointestinal: soft, non-tender, non-distended, normal bowel sounds - Integumentary Integumentary: Present: clear, warm, dry - Neurologic Neurologic: CNII-XII intact, moves all extremities Results - Labs CBC & Chem 7: 06/10/18 06:10 06/10/18 06:10 Labs: Laboratory Last Values WBC 6.8 K/mm3 (4.5-11.0) 06/10/18 06:10 RBC 2.30 M/mm3 (3.65-5.03) L 06/10/18 06:10 Hgb 7.4 gm/dl (11.8-15.2) L 06/10/18 06:10 Hct 21.7 % (35.5-45.6) L 06/10/18 06:10 MCV 94 fl (84-94) 06/10/18 06:10 MCH 32 pg (28-32) 06/10/18 06:10 MCHC 34 % (32-34) 06/10/18 06:10 RDW 15.3 % (13.2-15.2) H 06/10/18 06:10 Plt Count 204 K/mm3 (140-440) 06/10/18 06:10 Lymph % (Auto) 13.8 % (13.4-35.0) 06/10/18 06:10 [place] % (Auto) 7.4 % (0.0-7.3) H 06/10/18 06:10 Eos % (Auto) 1.4 % (0.0-4.3) 06/10/18 06:10 Baso % (Auto) 0.4 % (0.0-1.8) 06/10/18 06:10 Lymph # 0.9 K/mm3 (1.2-5.4) L 06/10/18 06:10 [place] # 0.5 K/mm3 (0.0-0.8) 06/10/18 06:10 Eos # 0.1 K/mm3 (0.0-0.4) 06/10/18 06:10 Baso # 0.0 K/mm3 (0.0-0.1) 06/10/18 06:10 Seg Neutrophils % 77.0 % (40.0-70.0) H 06/10/18 06:10 Seg Neutrophils # 5.3 K/mm3 (1.8-7.7) 06/10/18 06:10 Sodium 135 mmol/L (137-145) L 06/10/18 06:10 Potassium 4.6 mmol/L (3.6-5.0) 06/10/18 06:10 Chloride 99.8 mmol/L (98-107) 06/10/18 06:10 Carbon Dioxide 18 mmol/L (22-30) L 06/10/18 06:10 Anion Gap 22 mmol/L 06/10/18 06:10 BUN 75 mg/dL (9-20) H 06/10/18 06:10 Creatinine 9.5 mg/dL (0.8-1.5) H 06/10/18 06:10 Estimated GFR 6 ml/min 06/10/18 06:10 BUN/Creatinine Ratio 8 % 06/10/18 06:10 Glucose 87 mg/dL (75-100) 06/10/18 06:10 Calcium 7.8 mg/dL (8.4-10.2) L 06/10/18 06:10 Phosphorus 6.10 mg/dL (2.5-4.5) H 06/05/18 04:01 Total Bilirubin 0.90 mg/dL (0.1-1.2) 06/04/18 12:28 AST 21 units/L (5-40) 06/04/18 12:28 ALT 18 units/L (7-56) 06/04/18 12:28 Alkaline Phosphatase 90 units/L (35-129) 06/04/18 12:28 Total Protein 7.0 g/dL (6.3-8.2) 06/04/18 12:28 Albumin 3.7 g/dL (3.9-5) L 06/04/18 12:28 Albumin/Globulin Ratio 1.1 % 06/04/18 12:28 Hepatitis A IgM Ab Non-reactive (NonReactive) 06/04/18 21:09 Hep Bs Antigen Non-reactive (Negative) 06/04/18 21:09 Hep B Core IgM Ab Non-reactive (NonReactive) 06/04/18 21:09 Hepatitis C Antibody Non-reactive (NonReactive) 06/04/18 21:09
--- NOTE | 2018-06-10 14:00 | Operative Report ---
Operative Report Operative Report: Operative note: Date: 06/10/2018 Preoperative diagnosis: Malfunctioning left AV access Postoperative diagnosis: Same. Operation: Fistulogram, balloon angioplasty of cephalic arch Surgeon: Angelita Hodge. Asst.: None Anesthesia: Local with moderate sedation EBL: Minimal Findings: Patent AV fistula was excellent thrill. Stenosis at the cephalic arch was minimal residual stenosis Indications: 82-year-old gentleman on hemodialysis via left arm AV access recently underwent fistulogram was with improvement of his throat however during second dialysis there was issue was the flow. It was reasonable to schedule patient for repeat fistulogram. Risks, benefits and alternatives of procedure were discussed patient he chose to proceed and signed informed consent. Operative details: Patient was brought to the Virtual Classroom Manager and placed in supine position. His left arm was prepped and draped in sterile fashion. Timeout was performed. Fistula was accessed with micropuncture technique into the reduction of venous flow and changed to a 6 [place] access sheath. Sugar was performed and showed some stenosis at the cephalic arch is reasonable to perform repeat balloon angioplasty. A body 40 balloon was used with minimal residual stenosis. Excess fat was sutured with 4-0 chromic. Patient tolerated procedure well and was transferred to PACU in stable condition.
--- NOTE | 2018-06-10 14:11 | Progress Note ---
Assessment and Plan 1. ESRD: Patient was admitted with missed hemodialysis for more than 2 weeks. Continue hemodialysis as ordered. 2. Hyperkalemia and Metabolic acidosis: Potassium level is better. HD today. 3. Malfunctioning AVF: S/p Angioplasty today. AVF is functioning well. 4. Anemia: Epogen with HD. 5. HTN: Monitor BP. Subjective Date of service: 06/10/18 Interval history: Patient was seen and examined while on hemodialysis. Objective - Vital Signs Vital signs: Vital Signs - 12hr 06/10/18 06/10/18 06/10/18 07:50 08:59 09:40 Temperature 98.2 F Pulse Rate 64 64 Pulse Rate [ 78 From Monitor] Respiratory 16 20 Rate Blood Pressure 141/55 141/55 O2 Sat by Pulse 96 98 Oximetry 06/10/18 10:00 Temperature Pulse Rate 66 Pulse Rate [ From Monitor] Respiratory Rate Blood Pressure O2 Sat by Pulse Oximetry - General Appearance General appearance: well-developed, appears stated age, other (not in distress) EENT: ATNC Neck: supple Respiratory: Present: Clear to Ascultation Cardiology: regular, S1S2, no murmurs Gastrointestinal: normoactive bowel sounds, no tenderness, no distended Integumentary: no rash, warm and dry Neurologic: no focal deficit, no asterixis, confused, disoriented Musculoskeletal: other (left arm AVF, no edema) - Lab 06/10/18 06:10 06/10/18 06:10 Most recent lab results Calcium 7.8 mg/dL (8.4-10.2) L 06/10/18 06:10 Phosphorus 6.10 mg/dL (2.5-4.5) H 06/05/18 04:01 Medications & Allergies - Medications Allergies/Adverse Reactions: Allergies No Known Allergies Allergy (Unverified 06/04/18 12:07) Home Medications: Home Medications Medication Instructions Recorded Confirmed Last Taken Type Calcium Acetate [Phoslo] 667 mg PO TIDWM #20 capsule 06/07/18 Unknown Rx amLODIPine [Norvasc] 10 mg PO QDAY #30 tablet 06/07/18 Unknown Rx hydrALAZINE [Apresoline TAB] 100 mg PO TID #90 tab 06/07/18 Unknown Rx Active Medications: Generic Name Dose Route Start Last Admin Trade Name Freq PRN Reason Stop Dose Admin Acetaminophen 650 mg 06/04/18 14:51 Tylenol PO Q4H PRN Pain MILD(1-3)/Fever >100.5/SMITH Albuterol 2.5 mg 06/04/18 14:51 Proventil IH Q4HRT PRN Shortness Of Breath Amlodipine Besylate 10 mg 06/06/18 16:00 06/10/18 09:40 Norvasc PO Not Given QDAY [facility] [place] Calcium Acetate 667 mg 06/06/18 08:00 06/10/18 08:45 Phoslo PO 667 mg TIDWM [facility] [place] Administration Epoetin Fahad 20,000 unit 06/09/18 10:00 Procrit IV LEEANN PRN hemodialysis Heparin Sodium (Porcine) 5,000 unit 06/05/18 22:00 06/10/18 05:17 Heparin SUB-Q Not Given Q8HR [facility] [place] Hydralazine HCl 10 mg 06/06/18 15:18 Apresoline IV Q4HR PRN HTN SYS>160 Hydralazine HCl 100 mg 06/06/18 20:00 06/10/18 08:45 Apresoline PO Not Given TID [facility] [place] Sodium Chloride 100 mls @ 999 mls/hr 06/09/18 15:00 Nacl 0.9% IV LEEANN PRN Hypotension Ondansetron HCl 4 mg 06/04/18 14:51 Zofran IV Q8H PRN Nausea And Vomiting Sodium Chloride 10 ml 06/04/18 22:00 06/10/18 09:39 Sodium Chloride Flush Syringe 10 Ml IV 10 ml BID HERMAN Administration Sodium Chloride 10 ml 06/04/18 14:51 Sodium Chloride Flush Syringe 10 Ml IV PRN PRN LINE FLUSH
[2018-06-11] MEDS: HEPARIN SUB-Q SCH ×3 (07:02→23:15)
[2018-06-11] MEDS: APRESOLINE PO SCH ×3 (08:35→23:12)
[2018-06-11] MEDS: PHOSLO PO SCH ×3 (08:35→16:41)
[2018-06-11] MEDS: SODIUM CHLORIDE FLUSH SYRINGE 10 ML IV SCH ×2 (09:05→23:17)
[2018-06-11] MEDS: NORVASC PO SCH (10:08)
--- NOTE | 2018-06-11 10:40 | Progress Note ---
Assessment and Plan 1. ESRD: Patient was admitted with missed hemodialysis for more than 2 weeks. Patient was last dialyzed yesterday. Continue hemodialysis three times a week, TTS schedule. 2. Hyperkalemia and Metabolic acidosis: Potassium level is better. 3. Malfunctioning AVF: S/p Angioplasty yesterday. AVF functioning well. 4. Anemia: Epogen with HD. 5. HTN: Monitor BP. Subjective Date of service: 06/11/18 Interval history: Patient was seen and examined at the bedside. Objective - Vital Signs Vital signs: Vital Signs - 12hr 06/11/18 06/11/18 06/11/18 07:53 08:32 10:04 Temperature 98.4 F Pulse Rate 65 71 Respiratory 18 20 Rate Blood Pressure 128/57 122/53 O2 Sat by Pulse 95 97 97 Oximetry 06/11/18 10:08 Temperature Pulse Rate 71 Respiratory Rate Blood Pressure 122/53 O2 Sat by Pulse Oximetry - General Appearance General appearance: well-developed, appears stated age, other (not in distress) EENT: ATNC, PERRL Neck: supple Respiratory: Present: Clear to Ascultation Cardiology: regular, S1S2, no murmurs Gastrointestinal: normoactive bowel sounds, no tenderness, no distended Integumentary: no rash, warm and dry Neurologic: no focal deficit, no asterixis, confused, disoriented Musculoskeletal: other (no edema, left arm AVF) - Lab 06/10/18 06:10 06/10/18 06:10 Most recent lab results Calcium 7.8 mg/dL (8.4-10.2) L 06/10/18 06:10 Phosphorus 6.10 mg/dL (2.5-4.5) H 06/05/18 04:01 Medications & Allergies - Medications Allergies/Adverse Reactions: Allergies No Known Allergies Allergy (Unverified 06/04/18 12:07) Home Medications: Home Medications Medication Instructions Recorded Confirmed Last Taken Type Calcium Acetate [Phoslo] 667 mg PO TIDWM #20 capsule 06/07/18 Unknown Rx amLODIPine [Norvasc] 10 mg PO QDAY #30 tablet 06/07/18 Unknown Rx hydrALAZINE [Apresoline TAB] 100 mg PO TID #90 tab 06/07/18 Unknown Rx Active Medications: Generic Name Dose Route Start Last Admin Trade Name Freq PRN Reason Stop Dose Admin Acetaminophen 650 mg 06/04/18 14:51 Tylenol PO Q4H PRN Pain MILD(1-3)/Fever >100.5/SMITH Albuterol 2.5 mg 06/04/18 14:51 Proventil IH Q4HRT PRN Shortness Of Breath Amlodipine Besylate 10 mg 06/06/18 16:00 06/11/18 10:08 Norvasc PO 10 mg QDAY HERMAN Administration Calcium Acetate 667 mg 06/06/18 08:00 06/11/18 08:35 Phoslo PO 667 mg TIDWM HERMAN Administration Epoetin Fahad 20,000 unit 06/09/18 10:00 06/10/18 15:09 Procrit IV 20,000 unit LEEANN PRN Administration hemodialysis Heparin Sodium (Porcine) 5,000 unit 06/05/18 22:00 06/11/18 07:02 Heparin SUB-Q Not Given Q8HR HERMAN Hydralazine HCl 10 mg 06/06/18 15:18 Apresoline IV Q4HR PRN HTN SYS>160 Hydralazine HCl 100 mg 06/06/18 20:00 06/11/18 08:35 Apresoline PO 100 mg TID HERMAN Administration Ondansetron HCl 4 mg 06/04/18 14:51 Zofran IV Q8H PRN Nausea And Vomiting Sodium Chloride 10 ml 06/04/18 22:00 06/11/18 09:05 Sodium Chloride Flush Syringe 10 Ml IV 10 ml BID HERMAN Administration Sodium Chloride 10 ml 06/04/18 14:51 Sodium Chloride Flush Syringe 10 Ml IV PRN PRN LINE FLUSH
--- NOTE | 2018-06-11 10:55 | Progress Note ---
Assessment and Plan Assessment and plan: ESRD (end stage renal disease) - Continue hemodialysis per nephrology. - Nephrology following AVF malfunction - Vascular surgery with fistulogram and angioplasty of cephalic arch. Patient now with patent AVF minimal residual stenosis at cephalic arch Dementia - Supportive care Metabolic acidosis, hyperkalemia - Potassium is normal Severe anemia - Will have porcrit with dialysis - close monitoring, Polysubstance abuse DVT prophylaxis - Heparin History Interval history: No new issues overnight. Hospitalist Physical - Constitutional Vitals: Temp Pulse Resp BP Pulse Ox 98.4 F 71 20 122/53 97 06/11/18 07:53 06/11/18 10:08 06/11/18 08:32 06/11/18 10:08 06/11/18 10:04 General appearance: Present: no acute distress, well-nourished - EENT Eyes: Present: PERRL, EOM intact ENT: hearing intact, clear oral mucosa, dentition normal - Neck Neck: Present: supple, normal ROM - Respiratory Respiratory effort: normal Respiratory: bilateral: CTA - Cardiovascular Rhythm: regular Heart Sounds: Present: S1 & S2. Absent: gallop, rub - Extremities Extremities: no ischemia, No edema, Full ROM - Abdominal General gastrointestinal: soft, non-tender, non-distended, normal bowel sounds - Integumentary Integumentary: Present: clear, warm, dry - Neurologic Neurologic: CNII-XII intact, moves all extremities Results - Labs CBC & Chem 7: 06/10/18 06:10 06/10/18 06:10 Labs: Laboratory Last Values WBC 6.8 K/mm3 (4.5-11.0) 06/10/18 06:10 RBC 2.30 M/mm3 (3.65-5.03) L 06/10/18 06:10 Hgb 7.4 gm/dl (11.8-15.2) L 06/10/18 06:10 Hct 21.7 % (35.5-45.6) L 06/10/18 06:10 MCV 94 fl (84-94) 06/10/18 06:10 MCH 32 pg (28-32) 06/10/18 06:10 MCHC 34 % (32-34) 06/10/18 06:10 RDW 15.3 % (13.2-15.2) H 06/10/18 06:10 Plt Count 204 K/mm3 (140-440) 06/10/18 06:10 Lymph % (Auto) 13.8 % (13.4-35.0) 06/10/18 06:10 [place] % (Auto) 7.4 % (0.0-7.3) H 06/10/18 06:10 Eos % (Auto) 1.4 % (0.0-4.3) 06/10/18 06:10 Baso % (Auto) 0.4 % (0.0-1.8) 06/10/18 06:10 Lymph # 0.9 K/mm3 (1.2-5.4) L 06/10/18 06:10 [place] # 0.5 K/mm3 (0.0-0.8) 06/10/18 06:10 Eos # 0.1 K/mm3 (0.0-0.4) 06/10/18 06:10 Baso # 0.0 K/mm3 (0.0-0.1) 06/10/18 06:10 Seg Neutrophils % 77.0 % (40.0-70.0) H 06/10/18 06:10 Seg Neutrophils # 5.3 K/mm3 (1.8-7.7) 06/10/18 06:10 Sodium 135 mmol/L (137-145) L 06/10/18 06:10 Potassium 4.6 mmol/L (3.6-5.0) 06/10/18 06:10 Chloride 99.8 mmol/L (98-107) 06/10/18 06:10 Carbon Dioxide 18 mmol/L (22-30) L 06/10/18 06:10 Anion Gap 22 mmol/L 06/10/18 06:10 BUN 75 mg/dL (9-20) H 06/10/18 06:10 Creatinine 9.5 mg/dL (0.8-1.5) H 06/10/18 06:10 Estimated GFR 6 ml/min 06/10/18 06:10 BUN/Creatinine Ratio 8 % 06/10/18 06:10 Glucose 87 mg/dL (75-100) 06/10/18 06:10 Calcium 7.8 mg/dL (8.4-10.2) L 06/10/18 06:10 Phosphorus 6.10 mg/dL (2.5-4.5) H 06/05/18 04:01 Total Bilirubin 0.90 mg/dL (0.1-1.2) 06/04/18 12:28 AST 21 units/L (5-40) 06/04/18 12:28 ALT 18 units/L (7-56) 06/04/18 12:28 Alkaline Phosphatase 90 units/L (35-129) 06/04/18 12:28 Total Protein 7.0 g/dL (6.3-8.2) 06/04/18 12:28 Albumin 3.7 g/dL (3.9-5) L 06/04/18 12:28 Albumin/Globulin Ratio 1.1 % 06/04/18 12:28 Hepatitis A IgM Ab Non-reactive (NonReactive) 06/04/18 21:09 Hep Bs Antigen Non-reactive (Negative) 06/04/18 21:09 Hep B Core IgM Ab Non-reactive (NonReactive) 06/04/18 21:09 Hepatitis C Antibody Non-reactive (NonReactive) 06/04/18 21:09
[2018-06-12 05:05] LABS: Hematocrit 22.4 % (35.5-45.6); Hemoglobin 7.6 gm/dl (11.8-15.2); Mean Corpuscular HGB Conc 34 % (32-34); Mean Corpuscular Volume 95 fl (84-94); Platelet Count 215 K/mm3 (140-440); Red Blood Count 2.36 M/mm3 (3.65-5.03); Red Cell Distribution Width 16.2 % (13.2-15.2)
[2018-06-12] MEDS: HEPARIN SUB-Q SCH (06:27)
--- NOTE | 2018-06-12 08:48 | Discharge Summary ---
Providers - Providers Date of Admission: 06/04/18 15:55 Date of discharge: 06/12/18 Attending physician: BLANCA YOST 06/04/18 16:51 Consult to Physician [CONS] Routine Comment: Consulting Provider: EROS LERMA Physician Instructions: Reason For Exam: esrd 06/05/18 09:58 Consult to Interventional Radiology [CONS] Routine Consulting Provider: WILLAM RAUSCH Reason For Exam: Malfunctioning AVF Place consult to:: Notified:: ANN Hospitalization Reason for admission: missed HD Condition: Stable Hospital course: The patient is a 82 YO male with history significant for HTN, Anemia, Dementia and ESRD on HD (MWF) who presented to the ED with c/o missed hemodialysis more than 2 weeks. Patient was a very poor historian and there was no family member at the bedside. He recently moved from [facility] and currently living here in [place] at the [facility]. Pt seen and evaluated in ED and found to have hyperkalemia and metabolic acidosis. Pt admitted to [facility] unit. Nephrology consulted for ESRD care. Patient had a malfunction of AV graft and required vascular surgery prior to restarting hemodialysis. The patient underwent fistulogram and angioplasty of cephalic arch. Subsequently, a patent AVF with minimal residual stenosis at cephalic arch was achieved. Patient received hemodialysis without complications. Case management received a call from patient's daughter, Brooke Owusu who informed that she is not able to take patient into her home; therefore, he needs SNF placement. SNF placement was arranged. Dedicated discharge time 32 minutes. Disposition: - TO HOME OR SELFCARE Time spent for discharge: 32 - Discharge Diagnoses (1) Dementia Status: Acute Qualifiers: Dementia type: vascular dementia Dementia behavioral disturbance: without behavioral disturbance Qualified Code(s): F01.50 - Vascular dementia without behavioral disturbance Comment: Patient minimal cognitive impairment. Able to make needs known. (2) ESRD (end stage renal disease) Status: Acute Comment: Patient missed 2 weeks of hemodialysis. We'll dialyze both Saturday and Saturday. Patient back at baseline. No shortness of breath electrolytes stable hyperkalemia stable. Patient to be discharged back to assisted living today. (3) Hyperkalemia Status: Resolved Core Measure Documentation - Palliative Care Palliative Care/ Comfort Measures: Not Applicable - Core Measures Any of the following diagnoses?: none Exam - Constitutional Vitals: Temp Pulse Resp BP Pulse Ox 98.3 F 67 19 136/56 98 06/12/18 08:11 06/12/18 08:11 06/12/18 08:11 06/12/18 08:11 06/12/18 08:11 General appearance: Present: no acute distress, well-nourished - EENT Eyes: Present: PERRL ENT: hearing intact, clear oral mucosa - Neck Neck: Present: supple, normal ROM - Respiratory Respiratory effort: normal Respiratory: bilateral: CTA - Cardiovascular Heart Sounds: Present: S1 & S2. Absent: rub, click - Extremities Extremities: pulses symmetrical, No edema Peripheral Pulses: within normal limits - Abdominal General gastrointestinal: Present: soft, non-tender, non-distended, normal bowel sounds Male genitourinary: Present: normal - Integumentary Integumentary: Present: clear, warm, dry - Musculoskeletal Musculoskeletal: gait normal, strength equal bilaterally - Psychiatric Psychiatric: appropriate mood/affect, intact judgment & insight - Neurologic Neurologic: CNII-XII intact, moves all extremities Plan Activity: advance as tolerated Weight Bearing Status: Weight Bear as Tolerated Diet: renal Follow up with: [facility] [Other] - 3-5 Days Prescriptions: hydrALAZINE [Apresoline TAB] 100 mg PO TID #90 tab amLODIPine [Norvasc] 10 mg PO QDAY #30 tablet Calcium Acetate [Phoslo] 667 mg PO TIDWM #20 capsule
--- NOTE | 2018-06-12 09:09 | Progress Note ---
Assessment and Plan 1. ESRD: Patient was admitted with missed hemodialysis for more than 2 weeks. Continue hemodialysis three times a week, TTS schedule. 2. Hyperkalemia and Metabolic acidosis: Potassium level is better. 3. Malfunctioning AVF: S/p Angioplasty yesterday. AVF functioning well. 4. Anemia: Epogen with HD. 5. HTN: Monitor BP. Subjective Date of service: 06/12/18 Interval history: Patient was seen and examined at the bedside. Objective - Vital Signs Vital signs: Vital Signs - 12hr 06/11/18 06/12/18 06/12/18 22:55 02:00 02:14 Temperature 99.2 F 97.6 F Pulse Rate 72 72 Respiratory 18 20 Rate Blood Pressure 134/53 162/63 O2 Sat by Pulse 94 98 Oximetry 06/12/18 08:11 Temperature 98.3 F Pulse Rate 67 Respiratory 19 Rate Blood Pressure 136/56 O2 Sat by Pulse 98 Oximetry - General Appearance General appearance: well-developed, appears stated age, other (not inn distress) EENT: ATNC, PERRL Neck: supple Respiratory: Present: Clear to Ascultation Cardiology: regular, S1S2, no murmurs Gastrointestinal: normoactive bowel sounds, no tenderness, no distended Integumentary: no rash, warm and dry Neurologic: no focal deficit, no asterixis, confused, disoriented Musculoskeletal: other (Left arm AVF) - Lab 06/12/18 04:14 06/10/18 06:10 Most recent lab results Calcium 7.8 mg/dL (8.4-10.2) L 06/10/18 06:10 Phosphorus 6.10 mg/dL (2.5-4.5) H 06/05/18 04:01 Medications & Allergies - Medications Allergies/Adverse Reactions: Allergies No Known Allergies Allergy (Unverified 06/04/18 12:07) Home Medications: Home Medications Medication Instructions Recorded Confirmed Last Taken Type Calcium Acetate [Phoslo] 667 mg PO TIDWM #20 capsule 06/07/18 Unknown Rx amLODIPine [Norvasc] 10 mg PO QDAY #30 tablet 06/07/18 Unknown Rx hydrALAZINE [Apresoline TAB] 100 mg PO TID #90 tab 06/07/18 Unknown Rx Acetaminophen [Acetaminophen TAB] 650 mg PO Q4H PRN tablet 06/12/18 Unknown Rx Epoetin Fahad 10,000 Unit [Procrit] 20,000 unit IV LEEANN PRN vial 06/12/18 Unknown Rx Active Medications: Generic Name Dose Route Start Last Admin Trade Name Freq PRN Reason Stop Dose Admin Acetaminophen 650 mg 06/04/18 14:51 Tylenol PO Q4H PRN Pain MILD(1-3)/Fever >100.5/SMITH Albuterol 2.5 mg 06/04/18 14:51 Proventil IH Q4HRT PRN Shortness Of Breath Amlodipine Besylate 10 mg 06/06/18 16:00 06/11/18 10:08 Norvasc PO 10 mg QDAY HERMAN Administration Calcium Acetate 667 mg 06/06/18 08:00 06/11/18 16:41 Phoslo PO 667 mg TIDWM HERMAN Administration Epoetin Fahad 20,000 unit 06/09/18 10:00 06/10/18 15:09 Procrit IV 20,000 unit LEEANN PRN Administration hemodialysis Heparin Sodium (Porcine) 5,000 unit 06/05/18 22:00 06/12/18 06:27 Heparin SUB-Q 5,000 unit Q8HR HERMAN Administration Hydralazine HCl 10 mg 06/06/18 15:18 Apresoline IV Q4HR PRN HTN SYS>160 Hydralazine HCl 100 mg 06/06/18 20:00 06/11/18 23:12 Apresoline PO Not Given TID HERMAN Ondansetron HCl 4 mg 06/04/18 14:51 Zofran IV Q8H PRN Nausea And Vomiting Sodium Chloride 10 ml 06/04/18 22:00 06/11/18 23:17 Sodium Chloride Flush Syringe 10 Ml IV 10 ml BID HERMAN Administration Sodium Chloride 10 ml 06/04/18 14:51 Sodium Chloride Flush Syringe 10 Ml IV PRN PRN LINE FLUSH
[2018-06-12] MEDS: NORVASC PO SCH (10:05)
[2018-06-12] MEDS: SODIUM CHLORIDE FLUSH SYRINGE 10 ML IV SCH (10:06)
[2018-06-12] MEDS: APRESOLINE PO SCH (10:06)
[2018-06-12] MEDS: PHOSLO PO SCH ×2 (10:06→12:32)
[2018-06-12 14:36] VITALS: BP 140/54
== END 2018-06-12 14:40 | DRG 252 ==
LOC: ED 12:06 → 2B-ACE 15:55
PROVIDERS: ADMIT Internal Medicine; ATTEND Hospitalist
PROC: 057F3ZZ Dilation of Left Cephalic Vein, Percutaneous Approach (ICD-10-PCS; principal; 2018-06-06)
PROC: B51W1ZZ Fluoroscopy of Dialysis Shunt/Fistula using Low Osmolar Contrast (ICD-10-PCS; 2018-06-06)
PROC: B31J1ZZ Fluoroscopy of Left Upper Extremity Arteries using Low Osmolar Contrast (ICD-10-PCS; 2018-06-06)
PROC: B54NZZZ Ultrasonography of Left Upper Extremity Veins (ICD-10-PCS; 2018-06-06)
PROC: B3111ZZ Fluoroscopy of Right Brachiocephalic-Subclavian Artery using Low Osmolar Contrast (ICD-10-PCS; 2018-06-06)
PROC: 5A1D70Z Performance of Urinary Filtration, Intermittent, Less than 6 Hours Per Day (ICD-10-PCS; 2018-06-06)
PROC: 5A1D70Z Performance of Urinary Filtration, Intermittent, Less than 6 Hours Per Day (ICD-10-PCS; 2018-06-07)
PROC: 057F3ZZ Dilation of Left Cephalic Vein, Percutaneous Approach (ICD-10-PCS; 2018-06-10)
PROC: B51W1ZZ Fluoroscopy of Dialysis Shunt/Fistula using Low Osmolar Contrast (ICD-10-PCS; 2018-06-10)
PROC: 5A1D70Z Performance of Urinary Filtration, Intermittent, Less than 6 Hours Per Day (ICD-10-PCS; 2018-06-10)
DX: T82.510A Breakdown (mechanical) of surgically created arteriovenous fistula, initial encounter (principal); N18.6 End stage renal disease; E87.2 Acidosis; I12.0 Hypertensive chronic kidney disease with stage 5 chronic kidney disease or end stage renal disease; E87.5 Hyperkalemia; F01.50 Vascular dementia, unspecified severity, without behavioral disturbance, psychotic disturbance, mood disturbance, and anxiety; F19.10 Other psychoactive substance abuse, uncomplicated; D64.9 Anemia, unspecified; Y83.2 Surgical operation with anastomosis, bypass or graft as the cause of abnormal reaction of the patient, or of later complication, without mention of misadventure at the time of the procedure; Z99.2 Dependence on renal dialysis; Z91.15 Patient's noncompliance with renal dialysis; Z82.49 Family history of ischemic heart disease and other diseases of the circulatory system; Y92.89 Other specified places as the place of occurrence of the external cause
CPT/HCPCS: 36415; 36902; 71045; 80048; 80053; 80074; 84100; 85025; 85027; 87116; 93005; 93010; G0378; C1725; C1751; C1769; C1894; J0360; J0690; J0885; J1644; J1940; J2250; J3010; J7030; J7040; J7050; Q9967

== ENCOUNTER 2018-08-30 18:43 | Emergency (ER) | payer MEDICARE ==
--- NOTE | 2018-08-30 18:53 | Emergency Department Report ---
ED Male HPI - General Stated complaint: DYSURIA/HEMATURIA Time Seen by Provider: 08/30/18 18:47 Source: patient, EMS, old records reviewed Mode of arrival: Stretcher Limitations: Other (dementia) - History of Present Illness Initial comments: Mr. Vo is an 83 yo male with hx of HTN, ESRD on HD, dementia who presents from [facility] with hematuria after dialysis today. He denies pain. Denies any concerns otherwise. MD Complaint: other (hematuria) -: Gradual, This afternoon Improves with: none Worsens with: none denies other symptoms - Related Data Previous Rx's Medication Instructions Recorded Last Taken Type Calcium Acetate [Phoslo] 667 mg PO TIDWM #20 capsule 06/07/18 Unknown Rx amLODIPine [Norvasc] 10 mg PO QDAY #30 tablet 06/07/18 Unknown Rx hydrALAZINE [Apresoline TAB] 100 mg PO TID #90 tab 06/07/18 Unknown Rx Acetaminophen [Acetaminophen TAB] 650 mg PO Q4H PRN tablet 06/12/18 Unknown Rx Epoetin Fahad 10,000 Unit [Procrit] 20,000 unit IV LEEANN PRN vial 06/12/18 Unknown Rx Ciprofloxacin HCl [Ciprofloxacin 250 mg PO DAILY 7 Days #7 tablet 08/30/18 Unknown Rx TAB] Allergies Allergy/AdvReac Type Severity Reaction Status Date / Time No Known Allergies Allergy Unverified 06/04/18 12:07 ED Review of Systems ROS: Stated complaint: DYSURIA/HEMATURIA Other details as noted in HPI Comment: All other systems reviewed and negative Respiratory: denies: cough Cardiovascular: denies: chest pain ED Past Medical Hx - Past Medical History Previous Medical History?: Yes Hx Renal Disease: Yes (HD) Hx Psychiatric Treatment: Yes (drug abuse) Hx Dementia: Yes Hx HIV: No - Surgical History Additional Surgical History: AV access - Social History Smoking Status: Current Every Day Smoker - Medications Home Medications: Home Medications Medication Instructions Recorded Confirmed Last Taken Type Calcium Acetate [Phoslo] 667 mg PO TIDWM #20 capsule 06/07/18 Unknown Rx amLODIPine [Norvasc] 10 mg PO QDAY #30 tablet 06/07/18 Unknown Rx hydrALAZINE [Apresoline TAB] 100 mg PO TID #90 tab 06/07/18 Unknown Rx Acetaminophen [Acetaminophen TAB] 650 mg PO Q4H PRN tablet 06/12/18 Unknown Rx Epoetin Fahad 10,000 Unit [Procrit] 20,000 unit IV LEEANN PRN vial 06/12/18 Unknown Rx Ciprofloxacin HCl [Ciprofloxacin 250 mg PO DAILY 7 Days #7 tablet 08/30/18 Unknown Rx TAB] ED Physical Exam - General Limitations: No Limitations General appearance: alert, in no apparent distress, other (no acute distress) - Head Head exam: Present: atraumatic, normocephalic - Eye Eye exam: Present: normal appearance - ENT ENT exam: Present: mucous membranes moist - Neck Neck exam: Present: normal inspection, full ROM - Respiratory Respiratory exam: Present: normal lung sounds bilaterally. Absent: respiratory distress, wheezes, rales, rhonchi - Cardiovascular Cardiovascular Exam: Present: regular rate, normal rhythm, normal heart sounds. Absent: systolic murmur, diastolic murmur, rubs, gallop - GI/Abdominal GI/Abdominal exam: Present: soft, normal bowel sounds. Absent: distended, tenderness, guarding, rebound - Rectal Rectal exam: Present: deferred - Extremities Exam Extremities exam: Present: normal inspection - Back Exam Back exam: Present: normal inspection - Neurological Exam Neurological exam: Present: alert, other (oriented to name and place) - Psychiatric Psychiatric exam: Present: normal mood, flat affect - Skin Skin exam: Present: warm, dry, intact, normal color. Absent: rash ED Course Vital Signs 08/30/18 18:56 Temperature 98.7 F Pulse Rate 70 Respiratory 18 Rate Blood Pressure 132/54 O2 Sat by Pulse 98 Oximetry ED Medical Decision Making - Lab Data Result diagrams: 08/30/18 18:57 08/30/18 18:57 - Medical Decision Making Gross Hematuria, DDX: infection, malignancy, renal stone The nurse brought the voided URINE specimen to me for personal examination. Gross hematuria is evident. At this time CBC chemistry PT and PTT all within normal limits with the exception of known chronic kidney disease/ESRD. Elevated creatinine noted. Awaiting results of UA and CT. I anticipate discharge back to SNF. My colleague will arrange appropriate disposition. Critical care attestation.: If time is entered above; I have spent that time in minutes in the direct care of this critically ill patient, excluding procedure time. ED Disposition Clinical Impression: Hematuria Disposition: [id number]/TX-[id number] ANOTHER TYPE HLTHCARE Is pt being admited?: No Does the pt Need Aspirin: No Condition: Stable Instructions: Acute Hematuria (ED) Prescriptions: Ciprofloxacin HCl [Ciprofloxacin TAB] 250 mg PO DAILY 7 Days #7 tablet Referrals: LAILA CARROLL MD [Staff Physician] - 3-5 Days
[2018-08-30 19:16] LABS: Basophils % (Auto) 0.7 % (0.0-1.8); Eosinophils # (Auto) 0.2 K/mm3 (0.0-0.4); Eosinophils % (Auto) 3.1 % (0.0-4.3); Hematocrit 35.7 % (35.5-45.6); Hemoglobin 11.9 gm/dl (11.8-15.2); Lymphocytes # (Auto) 1.3 K/mm3 (1.2-5.4); Mean Corpuscular HGB Conc 33 % (32-34); Mean Corpuscular Volume 93 fl (84-94); Monocytes # (Auto) 0.6 K/mm3 (0.0-0.8); Monocytes % (Auto) 10.8 % (0.0-7.3); Platelet Count 146 K/mm3 (140-440); Red Blood Count 3.83 M/mm3 (3.65-5.03); Red Cell Distribution Width 14.9 % (13.2-15.2)
[2018-08-30 19:17] LABS: INR 1.03 (0.87-1.13)
[2018-08-30 19:18] LABS: Calcium 8.8 mg/dL (8.4-10.2); Partial Thromboplastin Time 26.9 Sec. (24.2-36.6)
[2018-08-30 20:40] LABS: Bilirubin,Urine NEG (Negative); Blood,Urine MOD (Negative); Color,Urine Yellow (Yellow); Urobilinogen,Urine < 2.0 mg/dL (<2.0)
[2018-08-30 20:43] LABS: RBC,Urine > 182.0 /HPF (0.0-6.0)
--- NOTE | 2018-08-30 20:57 | Cat Scan Report ---
PROCEDURE: CT ABDOMEN PELVIS WO CON HISTORY: hematuria FINDINGS: Unenhanced CT of the abdomen and pelvis was performed and data was reformatted in the sagit jose a and coronal planes. The heart is top normal in size. The lung bases appear clear. ABDOMEN: The unenhanced liver, spleen, adrenal glands, pancreas are unremarkable. There is a left nonobstructing renal calculus 0.5 cm. There is a rim calcified left renal lesion, likely complex cyst 1.4 cm. There is a hyperdense right interpolar renal lesion, 1.7 cm not characterized in the absence of intra venous contrast . There is a second anterior hyperdense right renal lesion, coronal image 75, sagitta l image 129, not not characterized, 1.2 cm. These could represent hemorrhagic cysts or solid renal le sions. There are not characterized in the absence of intravenous contrast. There is a low-density left adrenal nodule consistent with adenoma, 1.2 cm. There is a low-density ri ght adrenal lesion also consistent with adenoma 1.4 cm. There is aortic atherosclerotic change without aneurysmal dilation of the aorta. There is no small or large bowel obstruction. Pelvis: There is a normal appendix. There is no evidence of diverticulitis. The prostate is large measuring 6.5 x 6.4 x 6.2 cm, for a calculated volume of approximately 134 cc. The urinary bladder is mildly thick-walled likely secondary to the enlarged prostate, but appears oth erwise unremarkable. There is 0.7 cm anterolisthesis of L4 on L5. There are vacuum degenerative changes at L5-S1. There is a sclerotic focus in the left posterior iliac bone, image 107, likely bone island, 0.8 cm. IMPRESSION: ABDOMEN: Calcified left renal lesion There are 2 hyperdense right renal lesions. These are not characterized in the absence of intravenous contrast Left nonobstructing renal calculus Pelvis: Enlarged prostate This document is electronically signed by Atif Dominique MD., Aug 30 2018 08:55:30 PM ET
[2018-08-30 22:17] VITALS: BP 163/67
== END 2018-08-30 22:19 | disposition other institution (70) ==
LOC: ED 18:43
DX: R31.9 Hematuria, unspecified (principal); N18.6 End stage renal disease; F17.200 Nicotine dependence, unspecified, uncomplicated; Z99.2 Dependence on renal dialysis
CPT/HCPCS: 36415; 74176; 80048; 81001; 85025; 85610; 85730; 87086